=== PATIENT | female | born 1990 | race Caucasian/White ===

== ENCOUNTER 2018-06-25 20:39 | Emergency (ER) | payer OTHER ==
[~2018-06-25] VITALS: Ht 172.7 cm; Wt 85.6 kg
[2018-06-25 21:33] LABS: BASOPHILS % (AUTO) 0 % (0-1); EOSINOPHILS # (AUTO) 0.01 x10^3/uL (0-0.4); EOSINOPHILS % (AUTO) 0 % (1-7); LYMPHOCYTES # (AUTO) 0.88 x10^3/uL (1-3.4); LYMPHOCYTES % (AUTO) 8 % (22-44); MD NO; MEAN CORPUSCULAR HEMOGLOBIN 29.7 pg (27.0-34.8); MEAN CORPUSCULAR HGB CONC 33.1 g/dL (32.4-35.8); MEAN CORPUSCULAR VOLUME 89.7 fL (80-100); MEAN PLATELET VOLUME 6.8 fL (7.4-10.4); MONOCYTES # (AUTO) 0.56 x10^3/uL (0.2-0.8); MONOCYTES % (AUTO) 5 % (2-9); NEUTROPHILS # (AUTO) 9.26 x10^3/uL (1.8-6.8); NEUTROPHILS % (AUTO) 86 % (42-75); PLATELET COUNT 340 x10^3/uL (130-400); RED BLOOD COUNT 4.22 x10^6/uL (3.82-5.3); RED CELL DISTRIBUTION WIDTH 20.4 % (9.6-15.2)
[2018-06-25 21:42] LABS: ALANINE AMINOTRANSFERASE 51 U/L (12-78); ANION GAP 15 mmol/L (5-15); CHLORIDE 104 mmol/L (98-107)
[2018-06-25 21:43] LABS: D-DIMER 1.7 ug/mlFEU (0.00-0.52); INTERNATIONAL NORMALIZED RATIO 1.01 (0.93-1.1); PROTHROMBIN TIME 10.7 Seconds (9.6-11.5)
[2018-06-25 21:47] LABS: ALKALINE PHOSPHATASE 114 U/L (45-117); BILIRUBIN,TOTAL 0.4 mg/dL (0.2-1.0); CREATININE 0.85 mg/dL (0.55-1.02); FREE T4 (FREE THYROXINE) 0.73 ng/dL (0.76-1.46); TOTAL PROTEIN 7.7 g/dL (6.4-8.2); TROPONIN I < 0.015 ng/mL (0.000-0.045)
[2018-06-25] MEDS ORDERED: LORazepam 2 MG/ML, 1ML IVPush ONE (22:00)
[2018-06-25 22:01] LABS: HCG UR SG 1.003 (1.003-1.030)
[2018-06-25] MEDS ORDERED: LORazepam 2 MG/ML, 1ML ONE (22:10)
[2018-06-25 22:19] LABS: AMPHETAMINE SCREEN, URINE Negative (Negative); BARBITURATE SCREEN, URINE Negative (Negative); BENZODIAZEPINE SCREEN, URINE Negative (Negative); CANNABINOID SCREEN, URINE Negative (Negative); COCAINE SCREEN, URINE Negative (Negative); METHADONE SCREEN, URINE Negative (Negative)
[2018-06-25 22:20] LABS: OPIATE SCREEN, URINE Negative (Negative)
[2018-06-25] MEDS ORDERED: OMNIPAQUE 350 MG/ML, 100ML BOTTLE ONE (22:28)
[2018-06-25 23:10] VITALS: BP 122/74
== END 2018-06-25 23:42 | disposition home or self-care (01) ==
LOC: ED 21:23
DX: R07.89 Other chest pain (principal); R42 Dizziness and giddiness; R00.2 Palpitations; I10 Essential (primary) hypertension; Z90.49 Acquired absence of other specified parts of digestive tract; Z88.0 Allergy status to penicillin
CPT/HCPCS: 36415; 71045; 71275; 80053; 80307; 81025; 84439; 84443; 84484; 85025; 85379; 85610; 85730; 93005; 96374; 99284; J2060; Q9967

== ENCOUNTER 2018-07-27 02:03 | Emergency (ER) | payer OTHER ==
[~2018-07-27] VITALS: Ht 172.7 cm; Wt 85.6 kg
[~2018-07-27 02:03] MED LIST: GABA300C10 PO
[2018-07-27] MEDS ORDERED: FLUO40CA9 PO (02:08)
--- NOTE | 2018-07-27 02:09 | NUR ---
REGISTRATION SUPPLYING PAPERWORK AT THIS TIME, INJURY 07/15/18
--- NOTE | 2018-07-27 02:24 | NUR ---
MD PRESENTED WITH C/O PAIN AND SWELLING TO RIGHT HAND RADIATING TO ELBOW THAT STARTED ON 07/05/2018 AFTER INJURING HAND AT WORK, PT STATED TONIGHT PAIN GOT WORSE WHEN TRYING TO GET OUT OF BED. MONITOR APPLIED, SIDERAILS UP X2, CALL LIGHT WITHIN REACH, AWAITING ERP ORDERS.
[2018-07-27] MEDS ORDERED: HYDROcodone/APAP 5/325 TABLET ONE (02:46)
--- NOTE | 2018-07-27 02:48 | NUR ---
RIGHT WRIST ELEVATED, ICE PACK APPLIED, PT MEDICATED PER MAR
[2018-07-27] MEDS ORDERED: HYDROcodone/APAP 5/325 TABLET PO ONE (03:00)
[2018-07-27 03:23] VITALS: BP 120/75
--- NOTE | 2018-07-27 03:23 | NUR ---
PT RESTING WITH EYES CLOSED, OPENS EYES TO VERBAL RESPONSE, STATED " PAIN IS BETTER NOW", CALL LIGHT WITHIN REACH, CHART UP FOR RECHECK
--- NOTE | 2018-07-27 04:01 | NUR ---
SPLINT APPLIED TO RIGHT WRIST
== END 2018-07-27 04:03 | disposition home or self-care (01) ==
LOC: ED 03:16
DX: S60.211A Contusion of right wrist, initial encounter (principal); I10 Essential (primary) hypertension; Z90.49 Acquired absence of other specified parts of digestive tract; X58.XXXA Exposure to other specified factors, initial encounter; Y93.89 Activity, other specified; Y92.89 Other specified places as the place of occurrence of the external cause; Y99.8 Other external cause status
CPT/HCPCS: 29125; 29260; 99283

== ENCOUNTER 2018-08-16 17:23 | Emergency (ER) | payer OTHER ==
[~2018-08-16] VITALS: Ht 172.7 cm; Wt 82.9 kg
[~2018-08-16 17:23] MED LIST changes: +FLUO40CA9 PO
[2018-08-16 17:30] VITALS: BP 109/75
[2018-08-16] MEDS ORDERED: KETOROLAC 30 MG/1 ML IM ONE (18:30)
[2018-08-16] MEDS ORDERED: KETOROLAC 30 MG/1 ML ONE (18:53)
[2018-08-16] MEDS ORDERED: HYDROcodone/APAP 5/325 TABLET ONE (19:01)
[2018-08-16] MEDS ORDERED: DIAZEPAM 5 MG TABLET ONE (19:01)
[2018-08-16] MEDS ORDERED: HYDROcodone/APAP 5/325 TABLET PO STA (19:01)
[2018-08-16] MEDS ORDERED: DIAZEPAM 5 MG TABLET PO ONE (19:30)
--- NOTE | 2018-08-16 19:35 | NUR ---
Pt ambulated to door req blanket, blanket provided for pt.
== END 2018-08-16 20:29 | disposition home or self-care (01) ==
LOC: ED 19:08
DX: S39.012A Strain of muscle, fascia and tendon of lower back, initial encounter (principal); I10 Essential (primary) hypertension; X50.1XXA Overexertion from prolonged static or awkward postures, initial encounter; Y93.89 Activity, other specified; Y92.69 Other specified industrial and construction area as the place of occurrence of the external cause; Y99.0 Civilian activity done for income or pay
CPT/HCPCS: 72110; 96372; 99284; J1885; J7512

== ENCOUNTER 2018-08-19 10:07 | Emergency (ER) | payer OTHER ==
[~2018-08-19] VITALS: Ht 172.7 cm; Wt 83.5 kg
[2018-08-19 10:19] VITALS: BP 118/79
[2018-08-19] MEDS ORDERED: DIAZEPAM 5 MG TABLET ONE (10:59)
[2018-08-19] MEDS ORDERED: KETOROLAC 30 MG/1 ML ONE (10:59)
[2018-08-19] MEDS ORDERED: KETOROLAC 30 MG/1 ML IM ONE (11:00)
[2018-08-19] MEDS ORDERED: DIAZEPAM 5 MG TABLET PO ONE (11:00)
== END 2018-08-19 13:53 | disposition home or self-care (01) ==
LOC: ED 10:42
DX: S39.012A Strain of muscle, fascia and tendon of lower back, initial encounter (principal); X58.XXXA Exposure to other specified factors, initial encounter; Y93.89 Activity, other specified; Y92.89 Other specified places as the place of occurrence of the external cause; Y99.8 Other external cause status; I10 Essential (primary) hypertension
CPT/HCPCS: 72110; 96372; 99283; J1885

== ENCOUNTER 2018-09-24 | Emergency (ER) | payer OTHER ==
[~2018-09-24] VITALS: Ht 172.7 cm; Wt 83.5 kg
[2018-09-24 00:03] VITALS: BP 123/85
--- NOTE | 2018-09-24 01:33 | NUR ---
REGISTRATION REPORTS PT. WALKED OUT OF FRONT DOORS OF ED.
--- NOTE | 2018-09-24 01:34 | NUR ---
NIL X 1 AT THIS TIME.
--- NOTE | 2018-09-24 01:44 | NUR ---
NIL X 2.
--- NOTE | 2018-09-24 01:55 | NUR ---
NIL X 3 WHEN CALLED.
== END 2018-09-24 01:56 | disposition left against medical advice (07) ==
LOC: ED 01:40
DX: R19.7 Diarrhea, unspecified (principal); R11.10 Vomiting, unspecified; Z53.21 Procedure and treatment not carried out due to patient leaving prior to being seen by health care provider

== ENCOUNTER 2018-09-24 09:19 | Emergency (ER) | payer OTHER ==
[~2018-09-24] VITALS: Ht 172.7 cm; Wt 84.0 kg
--- NOTE | 2018-09-24 10:10 | NUR ---
MD AT BEDSIDE DOING RECTAL EXAM AND OBTAINING HEMOCULT
[2018-09-24] MEDS ORDERED: ONDANSETRON ODT 4 MG ONE (10:19)
--- NOTE | 2018-09-24 10:21 | NUR ---
UNABLE TO ESTABLISH IV. LAB AT BEDSIDE DRAWING BLOOD. MEDICATED FOR NAUSEA. VO BY MD TO ATTEMPT PO CHALLENGE AFTER MEDICATED
[2018-09-24] MEDS ORDERED: ONDANSETRON ODT 4 MG PO ONE (10:30)
[2018-09-24 10:33] LABS: BASOPHILS # (AUTO) 0.02 x10^3/uL (0-0.1); BASOPHILS % (AUTO) 0 % (0-1); EOSINOPHILS # (AUTO) 0.01 x10^3/uL (0-0.4); EOSINOPHILS % (AUTO) 0 % (1-7); LYMPHOCYTES # (AUTO) 1.52 x10^3/uL (1-3.4); LYMPHOCYTES % (AUTO) 22 % (22-44); MD NO; MEAN CORPUSCULAR HGB CONC 32.5 g/dL (32.4-35.8); MEAN CORPUSCULAR VOLUME 83.1 fL (80-100); MEAN PLATELET VOLUME 6.3 fL (7.4-10.4); MONOCYTES % (AUTO) 4 % (2-9); NEUTROPHILS # (AUTO) 5.09 x10^3/uL (1.8-6.8); NEUTROPHILS % (AUTO) 73 % (42-75); PLATELET COUNT 280 x10^3/uL (130-400); RED BLOOD COUNT 4.29 x10^6/uL (3.82-5.3); RED CELL DISTRIBUTION WIDTH 17.4 % (9.6-15.2)
[2018-09-24 10:43] LABS: INTERNATIONAL NORMALIZED RATIO 1.15 (0.93-1.1)
[2018-09-24 10:45] LABS: ALANINE AMINOTRANSFERASE 28 U/L (12-78); ANION GAP 11 mmol/L (5-15); CALCIUM 7.9 mg/dL (8.5-10.1); CHLORIDE 99 mmol/L (98-107)
--- NOTE | 2018-09-24 10:47 | NUR ---
UOB TO BATHROOM. PT DID NOT KNOW URINE SAMPLE NEEDED. PT SHOWED ME TISSUE WHERE SHE WIPED WITH BROWN NOTED. PT GIVEN PO CHALLENGE AND TO TRY TO GET URINE SAMPLE TALI
[2018-09-24 10:50] LABS: ALKALINE PHOSPHATASE 72 U/L (45-117); BILIRUBIN,TOTAL 0.5 mg/dL (0.2-1.0); TOTAL PROTEIN 6.9 g/dL (6.4-8.2)
[2018-09-24] MEDS ORDERED: POTASSIUM CHLORIDE 20 MEQ TAB.ER.PRT PO ONE (11:00)
[2018-09-24] MEDS ORDERED: POTASSIUM CHLORIDE 20 MEQ TAB.ER.PRT ONE (11:21)
[2018-09-24 11:46] LABS: MICROSCOPIC INDICATED
--- NOTE | 2018-09-24 11:52 | NUR ---
PT TOLERATING PO CHALLENGE BUT C/O ABDOMINAL PAIN
[2018-09-24 11:59] LABS: CULTURE INDICATED? YES
[2018-09-24 12:41] VITALS: BP 122/83
== END 2018-09-24 12:43 | disposition home or self-care (01) ==
LOC: ED 10:19
DX: E87.6 Hypokalemia (principal); R10.84 Generalized abdominal pain; R19.7 Diarrhea, unspecified; I10 Essential (primary) hypertension
CPT/HCPCS: 36415; 80053; 81001; 83690; 84703; 85025; 85610; 85730; 87086; 99283; Q0162

== ENCOUNTER 2019-02-28 01:35 | Emergency (ER) | payer OTHER ==
[~2019-02-28] VITALS: Ht 172.7 cm; Wt 79.8 kg
[2019-02-28 01:40] VITALS: BP 160/82
== END 2019-02-28 03:23 ==
LOC: ED 03:17
DX: O26.891 Other specified pregnancy related conditions, first trimester (principal); O99.281 Endocrine, nutritional and metabolic diseases complicating pregnancy, first trimester; E87.6 Hypokalemia; R10.30 Lower abdominal pain, unspecified; Z3A.01 Less than 8 weeks gestation of pregnancy
CPT/HCPCS: 36415; 76830; 80053; 81003; 84702; 85025; 99284; Q0162

== ENCOUNTER 2019-05-11 23:32 | Emergency (ER) | payer MEDICAID ==
[~2019-05-11] VITALS: Ht 172.7 cm; Wt 78.0 kg
[~2019-05-11 23:32] MED LIST changes: +PRENATAL; +multivitamins
--- NOTE | 2019-05-11 23:47 | NUR ---
PT BIB EMS WITH COMPLAINTS OF ABD PAIN, N/D THAT STARTED THIS EVENING. "THE PAIN SHOT FROM MY BELLY BUTTON TO MY BACK AND ALL THOROUGH MY ABDOMEN." PT DENIES VOMITING. PT REPORTS EATING SPICY FOOD EARLIER TODAY THAT "MADE ME HAVE A STOMACH ACHE AND HEARTBURN".
[2019-05-11] MEDS ORDERED: MORPHINE SULFATE 4 MG/ML, 1ML ONE (23:54)
[2019-05-11] MEDS ORDERED: ONDANSETRON 2MG/ML, 2ML ONE (23:54)
[2019-05-11 23:56] LABS: BASOPHILS # (AUTO) 0.02 x10^3/uL (0-0.1); BASOPHILS % (AUTO) 0 % (0-1); EOSINOPHILS % (AUTO) 10 % (1-7); LYMPHOCYTES # (AUTO) 2.61 x10^3/uL (1-3.4); LYMPHOCYTES % (AUTO) 28 % (22-44); MD NO; MEAN CORPUSCULAR HEMOGLOBIN 29.7 pg (27.0-34.8); MEAN CORPUSCULAR HGB CONC 32.9 g/dL (32.4-35.8); MEAN CORPUSCULAR VOLUME 90.3 fL (80-100); MEAN PLATELET VOLUME 6.9 fL (7.4-10.4); MONOCYTES # (AUTO) 0.57 x10^3/uL (0.2-0.8); MONOCYTES % (AUTO) 6 % (2-9); NEUTROPHILS # (AUTO) 5.27 x10^3/uL (1.8-6.8); NEUTROPHILS % (AUTO) 56 % (42-75); PLATELET COUNT 341 x10^3/uL (130-400); RED BLOOD COUNT 4.04 x10^6/uL (3.82-5.3); RED CELL DISTRIBUTION WIDTH 15.8 % (9.6-15.2)
[2019-05-12] MEDS ORDERED: ONDANSETRON 2MG/ML, 2ML IVPush ONE
[2019-05-12] MEDS: MORPHINE SULFATE 4 MG/ML, 1ML IVPush PRN ×2 (00:01→00:45)
[2019-05-12 00:04] LABS: ALANINE AMINOTRANSFERASE 30 U/L (12-78); ALBUMIN 3.1 g/dL (3.4-5.0); ANION GAP 6 mmol/L (5-15); CALCIUM 8.8 mg/dL (8.5-10.1); CHLORIDE 109 mmol/L (98-107); CREATININE 0.59 mg/dL (0.55-1.02)
[2019-05-12 00:08] LABS: ALKALINE PHOSPHATASE 56 U/L (45-117); BILIRUBIN,TOTAL 0.2 mg/dL (0.2-1.0); TOTAL PROTEIN 7.1 g/dL (6.4-8.2)
--- NOTE | 2019-05-12 00:13 | NUR ---
PT PROVIDED URINE SAMPLE. PT MEDICATED PER SEP.
[2019-05-12] MEDS ORDERED: MORPHINE SULFATE 4 MG/ML, 1ML ONE ×2 (00:40→01:52)
[2019-05-12 00:48] LABS: MICROSCOPIC NOT IND
[2019-05-12 00:51] LABS: CULTURE INDICATED? NO
--- NOTE | 2019-05-12 01:45 | NUR ---
DR. MCFADDEN IN TO [facility] PT.
[2019-05-12] MEDS ORDERED: KETOROLAC 30 MG/1 ML ONE (01:52)
[2019-05-12] MEDS ORDERED: KETOROLAC 30 MG/1 ML IVPush ONE (02:00)
[2019-05-12] MEDS ORDERED: MORPHINE SULFATE 4 MG/ML, 1ML IV ONE (02:00)
[2019-05-12 02:39] VITALS: BP 101/59
[2019-05-12] MEDS ORDERED: GABA800T5 PO (02:43)
== END 2019-05-12 02:44 | disposition home or self-care (01) ==
LOC: ED 05-12 00:09
DX: R10.84 Generalized abdominal pain (principal); R11.2 Nausea with vomiting, unspecified; R19.7 Diarrhea, unspecified; F17.200 Nicotine dependence, unspecified, uncomplicated; Z90.89 Acquired absence of other organs; Z90.49 Acquired absence of other specified parts of digestive tract
CPT/HCPCS: 36415; 80053; 81003; 83690; 84703; 85025; 96374; 96375; 96376; 99283; J1885; J2270; J2405

== ENCOUNTER 2019-05-19 23:46 | Emergency (ER) | payer MEDICAID ==
[~2019-05-19] VITALS: Ht 172.7 cm; Wt 79.1 kg
[~2019-05-19 23:46] MED LIST changes: +GABA800T5 PO
[2019-05-20] MEDS ORDERED: PROMETHAZINE 25 MG/ML, 1ML ONE (00:18)
[2019-05-20] MEDS ORDERED: KETOROLAC 30 MG/1 ML ONE (00:18)
[2019-05-20] MEDS ORDERED: ONDANSETRON 2MG/ML, 2ML ONE (00:18)
[2019-05-20] MEDS ORDERED: PROMETHAZINE 25 MG/ML, 1ML IM ONE (00:30)
[2019-05-20] MEDS ORDERED: SODIUM CHLORIDE FLUSH 10ML SYR IVF ONE (00:30)
[2019-05-20] MEDS ORDERED: ONDANSETRON 2MG/ML, 2ML IVPush ONE (00:30)
[2019-05-20] MEDS ORDERED: KETOROLAC 30 MG/1 ML IVPush ONE (00:30)
[2019-05-20 00:34] LABS: ALANINE AMINOTRANSFERASE 33 U/L (12-78); ALBUMIN 3.1 g/dL (3.4-5.0); ANION GAP 7 mmol/L (5-15); BASOPHILS # (AUTO) 0.05 x10^3/uL (0-0.1); BASOPHILS % (AUTO) 1 % (0-1); CALCIUM 8.6 mg/dL (8.5-10.1); CHLORIDE 107 mmol/L (98-107); CREATININE 0.86 mg/dL (0.55-1.02); EOSINOPHILS # (AUTO) 0.96 x10^3/uL (0-0.4); EOSINOPHILS % (AUTO) 10 % (1-7); LYMPHOCYTES # (AUTO) 2.87 x10^3/uL (1-3.4); LYMPHOCYTES % (AUTO) 29 % (22-44); MD NO; MEAN CORPUSCULAR HEMOGLOBIN 29.4 pg (27.0-34.8); MEAN CORPUSCULAR HGB CONC 32.5 g/dL (32.4-35.8); MEAN CORPUSCULAR VOLUME 90.6 fL (80-100); MEAN PLATELET VOLUME 7.3 fL (7.4-10.4); MONOCYTES # (AUTO) 0.68 x10^3/uL (0.2-0.8); MONOCYTES % (AUTO) 7 % (2-9); NEUTROPHILS # (AUTO) 5.19 x10^3/uL (1.8-6.8); NEUTROPHILS % (AUTO) 53 % (42-75); PLATELET COUNT 385 x10^3/uL (130-400); RED BLOOD COUNT 4.23 x10^6/uL (3.82-5.3); RED CELL DISTRIBUTION WIDTH 15.1 % (9.6-15.2)
[2019-05-20 00:38] LABS: ALKALINE PHOSPHATASE 64 U/L (45-117); BILIRUBIN,TOTAL 0.2 mg/dL (0.2-1.0)
--- NOTE | 2019-05-20 00:44 | NUR ---
PT C/O LOWER ABDOMINAL PAIN RADIATING TO FLANK. DENIES CP, SOB. PT REPORTS N/V/D. PT IN ED APPX 1 WEEK AGO WITH SIMGRZAYNA C/C REPORTS NO RELEIF SINCE THEN. PT CONNECTED TO MONITORING, ALL SAFETY MEASEURES IN PLACE, CALL LIGHT WITHIN REACH.
--- NOTE | 2019-05-20 00:53 | NUR ---
PT TO IMAGING
--- NOTE | 2019-05-20 01:11 | NUR ---
PT UNWILLING TO PROVIDE URINE SAMPLE AT THIS TIME.
--- NOTE | 2019-05-20 01:28 | NUR ---
PT REPORTS CONTINUED PAIN 02/22. ERP NOTIFIED. NO NEW ORDERS, PT UPDATED. AWAITING IMAGING RESULTS. PT UNWILLING TO PROVIDE URINE SAMPLE.
--- NOTE | 2019-05-20 01:51 | NUR ---
DR. AQUINO IN ROOM TO DISCUSS NEED FOR URINE SAMPLE. PT CONTINUES TO REFUSE.
--- NOTE | 2019-05-20 02:30 | NUR ---
PT. GIVEN INSTRUCITONS ABOUT CLEAN CATCH UA; PT. WILLING TO ATTEMPT TO PROVIDE SAMPLE NOW. AMBULATED TO WITH STEADY GAIT.
--- NOTE | 2019-05-20 02:38 | NUR ---
URINE SAMPLE COLLECTED AND SENT TO LAB. PT. STATES "NURSE, I AM GETTING REALLY SICK OF LAYING HERE IN PAIN, AND YOU AREN'T DOING ANYTHING FOR ME." DISCUSSED WTIH DR. AQUINO; NO NEW ORDERS AT THIS TIME; PT. UPDATED ON THIS. MONITORS REMAIN IN PLACE. VSS.
[2019-05-20 02:48] LABS: MICROSCOPIC INDICATED
--- NOTE | 2019-05-20 02:53 | NUR ---
PT. AGAIN CALLING RN INTO ROOM REQUESTING PAIN MEDICATIONS. DISCUSSED AGAIN WITH PT. THAT NO NEW ORDERS HAVE BEEN RECEIVED DESPITE REQ FROM ERMD X 2. PT. AGITATED WITH RN AND STATES "HOW MUCH LONGER DO I HAVE TO BE HERE". REPORTED TO HER WE ARE WAITING FOR UA RESULTS AND MD WILL BE BACK TO DISCUSS RESULTS. PT. REPORTS SHE WILL WAIT FOR NOW. FAMILY REMAINS AT FOR SUPPORT. ALL SAFETY MEASURES MAINTAINED.
[2019-05-20 03:11] LABS: CULTURE INDICATED? YES
--- NOTE | 2019-05-20 03:29 | NUR ---
DR. AQUINO WAS BACK IN TO DISCUSS POC WITH PT. AND FAMILY AT .
[2019-05-20 03:47] VITALS: BP 94/56
== END 2019-05-20 04:05 | disposition home or self-care (01) ==
LOC: ED 05-20 03:20
DX: R10.13 Epigastric pain (principal); R10.11 Right upper quadrant pain; R82.71 Bacteriuria; R11.2 Nausea with vomiting, unspecified; R19.7 Diarrhea, unspecified; F17.200 Nicotine dependence, unspecified, uncomplicated; Z90.49 Acquired absence of other specified parts of digestive tract
CPT/HCPCS: 36415; 74021; 80053; 81001; 83690; 84702; 85025; 87086; 96372; 96374; 96375; 99284; J1885; J2405; J2550; 84703

== ENCOUNTER 2019-06-05 00:35 | Emergency (ER) | payer MEDICAID ==
[~2019-06-05] VITALS: Ht 172.7 cm; Wt 79.0 kg
--- NOTE | 2019-06-05 00:46 | NUR ---
PT JENN FROM GYM. PT STATES SHE HAS BEEN FEELING VERY WEAK & TIRED LAST COUPLE DAYS & THOUGHT GOING TO THE GYM TO "SWEAT IT OUT" WOULD HELP. PT THEN DEVELOPED RLQ PAIN, RADIATING TO BACK C N/V. PT GIVEN 150MCG FENTANYL & 4MG ZOFRAN ENROUTE. MILD RELIEF. PT CONTINUES TO HAVE VOMITING. VSS. TBS.
[2019-06-05] MEDS ORDERED: ONDANSETRON 2MG/ML, 2ML IVPush ONE (01:00)
[2019-06-05] MEDS ORDERED: SODIUM CHLORIDE 0.9% 1,000ML IVBOLUS ONE (01:00)
--- NOTE | 2019-06-05 01:00 | NUR ---
RECEIVED REPORT FROM MARCELINO PADRON. US CURRENTLY AT BEDSIDE.
[2019-06-05] MEDS ORDERED: MORPHINE SULFATE 4 MG/ML, 1ML ONE ×2 (01:08→02:37)
[2019-06-05] MEDS ORDERED: ONDANSETRON 2MG/ML, 2ML ONE (01:08)
[2019-06-05] MEDS: MORPHINE SULFATE 4 MG/ML, 1ML IVPush PRN ×2 (01:11→02:39)
--- NOTE | 2019-06-05 01:33 | NUR ---
0110: MEDICATED ORDERED 0128: PT AMBULATED TO BR, CLEAN CATCH URINE SAMPLES COLLECTED AND SENT TO LAB. PT BACK TO ROOM, REPOSITIONED ON [facility].
[2019-06-05 01:36] LABS: ALANINE AMINOTRANSFERASE 29 U/L (12-78); ALBUMIN 3.2 g/dL (3.4-5.0); ANION GAP 7 mmol/L (5-15); CALCIUM 8.9 mg/dL (8.5-10.1); CHLORIDE 108 mmol/L (98-107); CREATININE 0.69 mg/dL (0.55-1.02)
[2019-06-05 01:39] LABS: ALKALINE PHOSPHATASE 53 U/L (45-117); BILIRUBIN,TOTAL 0.2 mg/dL (0.2-1.0); TOTAL PROTEIN 7.4 g/dL (6.4-8.2)
[2019-06-05 01:42] LABS: BASOPHILS # (AUTO) 0.03 x10^3/uL (0-0.1); BASOPHILS % (AUTO) 0 % (0-1); EOSINOPHILS # (AUTO) 0.51 x10^3/uL (0-0.4); EOSINOPHILS % (AUTO) 6 % (1-7); LYMPHOCYTES % (AUTO) 30 % (22-44); MD NO; MEAN CORPUSCULAR HEMOGLOBIN 29.9 pg (27.0-34.8); MEAN CORPUSCULAR HGB CONC 33.2 g/dL (32.4-35.8); MEAN CORPUSCULAR VOLUME 90.3 fL (80-100); MEAN PLATELET VOLUME 7.2 fL (7.4-10.4); MONOCYTES # (AUTO) 0.58 x10^3/uL (0.2-0.8); MONOCYTES % (AUTO) 7 % (2-9); NEUTROPHILS # (AUTO) 4.87 x10^3/uL (1.8-6.8); NEUTROPHILS % (AUTO) 57 % (42-75); PLATELET COUNT 340 x10^3/uL (130-400); RED BLOOD COUNT 4.47 x10^6/uL (3.82-5.3); RED CELL DISTRIBUTION WIDTH 14.6 % (9.6-15.2)
--- NOTE | 2019-06-05 01:43 | NUR ---
PT REPORTS NAUSEA AND PAIN ARE IMPROVING. REPOSITIONED ON GURNEY, PROVIDED W/ WARM BLANKET
[2019-06-05 01:52] LABS: MICROSCOPIC AUTO
[2019-06-05 01:58] LABS: CULTURE INDICATED? YES
[2019-06-05 02:14] VITALS: BP 107/69
[2019-06-05] MEDS ORDERED: METOCLOPRAMIDE 5 MG/ML, 2ML ONE (02:29)
[2019-06-05] MEDS ORDERED: METOCLOPRAMIDE 5 MG/ML, 2ML IVPush ONE (02:30)
--- NOTE | 2019-06-05 02:57 | NUR ---
REVIEWED DISCHARGE INSTRUCTIONS W/ PT, VERBALIZED UNDERSTANDING TO INFORMATION PROVIDED INCLUDING FOLLOW UP CARE, RETURN PRECAUTIONS AND MEDICATIONS. PT REPORTS HAS AN APPOINTMENT SCHEDULED W/ GI. SPOUSE ARRIVED TO ED, REVIEWED DISCHARGE INSTRUCTIONS AND PRECAUTIONS W/ MEDICATIONS GIVEN. PT STATED FEELING WELL ENOUGH TO GO HOME, AMBULATED FROM ED W/ SPOUSE.
== END 2019-06-05 03:01 | disposition home or self-care (01) ==
LOC: ED 02:45
DX: R11.2 Nausea with vomiting, unspecified (principal); R10.31 Right lower quadrant pain; R10.32 Left lower quadrant pain; R19.7 Diarrhea, unspecified; Z90.89 Acquired absence of other organs; Z90.49 Acquired absence of other specified parts of digestive tract; Z87.11 Personal history of peptic ulcer disease
CPT/HCPCS: 36415; 76770; 80053; 81001; 81025; 83690; 85025; 87086; 96361; 96374; 96375; 96376; 99284; J2270; J2405; J2765; J7030

== ENCOUNTER 2019-06-07 11:01 | Emergency (ER) | payer MEDICAID, OTHER ==
[~2019-06-07] VITALS: Ht 172.7 cm; Wt 77.5 kg
[2019-06-07 11:11] VITALS: BP 125/79
--- NOTE | 2019-06-07 11:16 | NUR ---
PT C/O ABD PAIN SINCE YESTERDAY, SEEN HERE YESTERDAY AND DC'D HOME. PT DID NOT FILL RX AND AT ABOUT 3 AM BEGAN TO VOMIT AGAIN. PT DENIES ANY VB OR DIARRHEA. DR. KENNEDY AT BEDSIDE.
[2019-06-07] MEDS ORDERED: METOCLOPRAMIDE 5 MG/ML, 2ML ONE (11:20)
--- NOTE | 2019-06-07 11:25 | NUR ---
PT REQUESTING PAIN MEDS. DR. KENNEDY NOTIFIED.
[2019-06-07] MEDS ORDERED: METOCLOPRAMIDE 5 MG/ML, 2ML IVPush ONE (11:30)
[2019-06-07] MEDS ORDERED: SODIUM CHLORIDE 0.9% 1,000ML IVBOLUS ONE (11:30)
--- NOTE | 2019-06-07 11:36 | NUR ---
PT STATED, 'I WANT TO GO." PT NOTIFIED DR. KENNEDY HAS ORDRED SAME LABS AND MEDICATIONS TO HELP CONTROL HER N/V AND PAIN MEDS WERE REQUESTED. PT INSISTED THAT SHE WANTED TO GO NOW. IV REMOVED AND DR. KENNEDY NOTIFIED. PT GIVEN BUS PASS.
== END 2019-06-07 11:40 | disposition home or self-care (01) ==
LOC: ED 11:34
DX: R10.31 Right lower quadrant pain (principal); R10.33 Periumbilical pain; R11.10 Vomiting, unspecified; Z87.11 Personal history of peptic ulcer disease
CPT/HCPCS: 99283

== ENCOUNTER 2019-06-13 18:53 | Emergency (ER) | payer MEDICAID, OTHER ==
[~2019-06-13] VITALS: Ht 172.7 cm; Wt 78.0 kg
[2019-06-13] MEDS ORDERED: ONDANSETRON 2MG/ML, 2ML ONE ×2 (19:23→22:32)
[2019-06-13] MEDS ORDERED: MORPHINE SULFATE 4 MG/ML, 1ML ONE ×2 (19:23→19:51)
[2019-06-13] MEDS ORDERED: IBUPROFEN 800 MG TABLET ONE (19:23)
[2019-06-13] MEDS ORDERED: ONDANSETRON 2MG/ML, 2ML IVPush ONE ×2 (19:30→23:00)
[2019-06-13] MEDS ORDERED: SODIUM CHLORIDE 0.9% 1,000ML IVBOLUS ONE (19:30)
[2019-06-13] MEDS ORDERED: PLEASE ENTER HEIGHT AND WEIGHT MC SCH (19:30)
[2019-06-13] MEDS ORDERED: SODIUM CHLORIDE FLUSH 10ML SYR IVF ONE (19:30)
[2019-06-13] MEDS ORDERED: IBUPROFEN 800 MG TABLET PO ONE (19:30)
[2019-06-13] MEDS: MORPHINE SULFATE 4 MG/ML, 1ML IVPush PRN ×2 (19:31→20:02)
--- NOTE | 2019-06-13 19:43 | NUR ---
PT PLACED ON HEART MONITOR, BP CUFF, PULSE OX. VSS, HR DECREASED TO 87 AT THIS TIME-PREVIOUSLY IN 120S. PT STATES "I WAS HAVING THE START OF A PANIC ATTACK THEN". MEDS AND IVF GIVEN PER ERP ORDER. WITHIN FIVE MINUTES OF MEDS GIVEN, PT ASKING FOR MORE PAIN MEDS-STATING IT HASN'T HELPED. SMALL AMOUNT OF PALE URINE COLLECTED/SENT TO LAB. ERP NOTIFIED OF CHANGE IN HR AND PT REQUEST FOR MORE PAIN MEDICATION.
[2019-06-13 19:52] LABS: CULTURE INDICATED? NO; MICROSCOPIC NOT IND
[2019-06-13 19:55] LABS: BASOPHILS # (AUTO) 0.02 x10^3/uL (0-0.1); BASOPHILS % (AUTO) 0 % (0-1); EOSINOPHILS # (AUTO) 0.02 x10^3/uL (0-0.4); EOSINOPHILS % (AUTO) 0 % (1-7); LYMPHOCYTES # (AUTO) 1.01 x10^3/uL (1-3.4); LYMPHOCYTES % (AUTO) 17 % (22-44); MD NO; MEAN CORPUSCULAR HGB CONC 32.8 g/dL (32.4-35.8); MEAN CORPUSCULAR VOLUME 91.6 fL (80-100); MEAN PLATELET VOLUME 6.7 fL (7.4-10.4); MONOCYTES # (AUTO) 0.31 x10^3/uL (0.2-0.8); MONOCYTES % (AUTO) 5 % (2-9); NEUTROPHILS # (AUTO) 4.47 x10^3/uL (1.8-6.8); NEUTROPHILS % (AUTO) 77 % (42-75); PLATELET COUNT 346 x10^3/uL (130-400); RED BLOOD COUNT 3.98 x10^6/uL (3.82-5.3); RED CELL DISTRIBUTION WIDTH 14.3 % (9.6-15.2)
--- NOTE | 2019-06-13 20:04 | NUR ---
PT REMEDICATED FOR PERSISTENT PAIN RATED 6/10 AT THIS TIME. CALL LIGHT WITHIN REACH, VSS.
[2019-06-13 20:09] LABS: ALANINE AMINOTRANSFERASE 28 U/L (12-78); ANION GAP 6 mmol/L (5-15); CALCIUM 8.2 mg/dL (8.5-10.1); CHLORIDE 107 mmol/L (98-107)
[2019-06-13 20:14] LABS: ALKALINE PHOSPHATASE 50 U/L (45-117); BILIRUBIN,TOTAL 0.3 mg/dL (0.2-1.0); TOTAL PROTEIN 6.9 g/dL (6.4-8.2)
--- NOTE | 2019-06-13 20:29 | NUR ---
ALL RESULTS BACK, PT FOR RECHECK.
[2019-06-13] MEDS ORDERED: POTASSIUM CHLORIDE 20 MEQ TAB.ER.PRT PO ONE (21:00)
[2019-06-13] MEDS ORDERED: POTASSIUM CHLORIDE 20 MEQ TAB.ER.PRT ONE (21:12)
--- NOTE | 2019-06-13 21:51 | NUR ---
REPORT FROM RUFINA BENSON
--- NOTE | 2019-06-13 22:17 | NUR ---
PT PLACED FOR RECHECK BY ERP
--- NOTE | 2019-06-13 22:23 | NUR ---
PT ASKING FOR PAIN MEDS, STATES SHE HAS BEEN ASKING FOR HOURS AND NO ONE HAS SAID ANYTHING TO HER. I TALKED TO DUNG AND DUNG SAID SHE HAD A DISCUSSION WITH PT ABOUT PAIN MEDICATIONS. DUNG SAID NO MORE PAIN MEDICATIONS UNTIL A POC IS CREATED AND PT WILL BE UPDATED SOON A PLAN IS MADE. PT CONTINUES TO GO INTO [facility] AND TO THE NURSES DESK TO ASK FOR PAIN MEDCATIONS AND CONTINUES TO STATES THAT NO NURSE HAS TALKED TO AFTER I UPDATED HER ON A POC LESS THEN 5 MINUTES AFTER I LEFT THE ROOM.
[2019-06-13] MEDS ORDERED: HYDROmorphone 1 MG/ML, 1ML VIAL ONE (22:32)
--- NOTE | 2019-06-13 22:38 | NUR ---
DUNG PERSCRIBED PAIN MEDICATION AND ZOFRAN. PT MEDICATED PER EMAR
--- NOTE | 2019-06-13 22:44 | NUR ---
DR AQUINO IN TO UPDATE PT. OB LINK TRAINER MAINTENANCE MAN COMING TO SEE PT.
[2019-06-13] MEDS ORDERED: HYDROmorphone 2 MG/ML, 1ML IVPush PRN (23:00)
--- NOTE | 2019-06-13 23:00 | NUR ---
OB IN TO ASSESS PT
[2019-06-13] MEDS ORDERED: PROMETHAZINE 25 MG/ML, 1ML ONE (23:55)
[2019-06-14] MEDS ORDERED: PROMETHAZINE 25 MG/ML, 1ML IM ONE
--- NOTE | 2019-06-14 00:06 | NUR ---
PT REPORTS RELIEF FROM PAIN, HOWEVER PT STATES THAT NAUSEA PERSISTS. PT PROVIDED PHENERGAN FOR NAUSEA. PT EDUCATED ON FOLLOW UP PROCEDURES.
[2019-06-14 00:16] VITALS: BP 115/63
== END 2019-06-14 00:09 | disposition home or self-care (01) ==
LOC: ED 20:15
DX: O26.891 Other specified pregnancy related conditions, first trimester (principal); R10.11 Right upper quadrant pain; R10.31 Right lower quadrant pain; Z3A.01 Less than 8 weeks gestation of pregnancy
CPT/HCPCS: 36415; 76830; 80053; 81003; 83605; 84145; 84702; 84703; 85025; 87040; 96372; 96374; 96375; 96376; 99284; J1170; J2270; J2405; J2550; J7030

== ENCOUNTER 2019-06-14 07:09 | Emergency (ER) | payer MEDICAID, OTHER ==
[~2019-06-14] VITALS: Ht 172.7 cm; Wt 80.1 kg
--- NOTE | 2019-06-14 07:19 | NUR ---
Pt pushed in wheelchair from triage to ED room. Pt has spouse walking beside.
--- NOTE | 2019-06-14 07:31 | NUR ---
Pt resting on gurney guarding RLQ of abdomen stating 10/10 pain. Pt states PMH of cholecystectomy and pt's chart shows appendectomy. Pt states, "I don't know" when asked if she had her appendix removed. Pt vital signs stable, please see charting. Pt states, "I have been vomitting blood for the last two hours." Pt states, "I am suppose to have a camera down my throat." Pt has recent history of abdominal pain. Pt connected to NIBP cuff and continous pulse ox monitor. Call light within reach. No vomitting observerd at bedside. NADN. No other needs expressed at this time.
--- NOTE | 2019-06-14 07:35 | NUR ---
Pt states LMP is currently occuring.
[2019-06-14] MEDS ORDERED: ONDANSETRON 2MG/ML, 2ML ONE (07:57)
[2019-06-14] MEDS ORDERED: MORPHINE SULFATE 4 MG/ML, 1ML ONE ×3 (07:57→10:21)
[2019-06-14] MEDS ORDERED: SODIUM CHLORIDE 0.9% 1,000ML IVBOLUS ONE (08:00)
[2019-06-14] MEDS ORDERED: ONDANSETRON 2MG/ML, 2ML IVPush ONE (08:00)
[2019-06-14] MEDS ORDERED: SODIUM CHLORIDE FLUSH 10ML SYR IVF ONE (08:00)
[2019-06-14] MEDS: MORPHINE SULFATE 4 MG/ML, 1ML IVPush PRN ×2 (08:10→09:06)
--- NOTE | 2019-06-14 08:18 | NUR ---
LABS - US DELAY
--- NOTE | 2019-06-14 08:30 | NUR ---
LAB to redraw in 30 minutes per specialist employee labor relations. Pt transported on gurney to US at this time. Prior to pt transported, pt states, "I am feeling better after the medication, the pain is still there but not as bad." NADN. No other needs expressed. Pt aware of NPO status.
[2019-06-14 08:35] LABS: MICROSCOPIC NOT IND
[2019-06-14 08:38] LABS: CULTURE INDICATED? NO
--- NOTE | 2019-06-14 09:07 | NUR ---
NS bolus per EMAR held per EDMD order.
--- NOTE | 2019-06-14 09:07 | NUR ---
Pt requesting pain medication for 02/22 RLQ abdominal pain. Pt states, "it started creeping back up again." Medication provided per EMAR.
[2019-06-14 09:34] LABS: ALANINE AMINOTRANSFERASE 200 U/L (12-78); ANION GAP 9 mmol/L (5-15); CALCIUM 8.9 mg/dL (8.5-10.1); CHLORIDE 108 mmol/L (98-107)
[2019-06-14 09:39] LABS: ALKALINE PHOSPHATASE 131 U/L (45-117); BILIRUBIN,TOTAL 0.4 mg/dL (0.2-1.0); TOTAL PROTEIN 7.1 g/dL (6.4-8.2)
[2019-06-14 09:57] LABS: MD YES; MEAN CORPUSCULAR HEMOGLOBIN 29.6 pg (27.0-34.8); MEAN CORPUSCULAR HGB CONC 33.1 g/dL (32.4-35.8); MEAN CORPUSCULAR VOLUME 89.6 fL (80-100); MEAN PLATELET VOLUME 6.8 fL (7.4-10.4); PLATELET COUNT 313 x10^3/uL (130-400); RED CELL DISTRIBUTION WIDTH 14.3 % (9.6-15.2)
[2019-06-14 09:58] LABS: SEG#(MANUAL) 4.44 x10^3/uL (1.8-6.8); SEGS% (MANUAL) 74 % (42-75)
[2019-06-14 09:59] LABS: EOS#(MANUAL) 0.06 x10^3/uL (0.0-0.4); EOS% (MANUAL) 1 % (1-7); LYMPH#(MANUAL) 1.38 x10^3/uL (1-3.4); LYMPHS% (MANUAL) 23 % (22-44); MONOS#(MANUAL) 0.12 x10^3/uL (0.3-2.7); MONOS% (MANUAL) 2 % (2-9)
[2019-06-14 10:00] LABS: <PLATELET ESTIMATE> ADEQUATE; <PLT MORPHOLOGY> NORMAL PLT MORPH; <RBC MORPHOLOGY> NORMAL
[2019-06-14 10:06] VITALS: BP 119/77
--- NOTE | 2019-06-14 10:06 | NUR ---
break RN note: abd US in progress in pt's room at this time. pt awake, alert, resps even and unlabored.
[2019-06-14] MEDS ORDERED: MORPHINE SULFATE 4 MG/ML, 1ML IVPush PRN (10:30)
[2019-06-14] MEDS ORDERED: NS + 40MEQ KCL 1,000 ML IV ONE ×2 (10:47→11:00)
--- NOTE | 2019-06-14 11:10 | NUR ---
Began to provide medicaitons and PIV fluids per EMAR. Pt states anxiety. Pt states, "I am getting anxious, I can not get a hold of my and I am worried something happened to him. He left like an hour ago to get tobacco. He is not back yet." EDRN attempted contacting pt's spouse per pt request by phone. No answer. Pt notified. Pt decied to leave AMA. Pt educated on AMA status. Pt states verbal understanding. AMA paperwork provided to pt. PIV's removed with tips intact and no signs or symptoms of infiltration or phlebitis. Pt left with all personal belongings and yellow copy of AMA paperwork. NADN. No other needs requested.
== END 2019-06-14 11:14 | disposition left against medical advice (07) ==
LOC: ED 07:30
DX: R10.2 Pelvic and perineal pain (principal); R94.5 Abnormal results of liver function studies; R11.10 Vomiting, unspecified
CPT/HCPCS: 36415; 76700; 76801; 80053; 80074; 81003; 83690; 84702; 85025; 96365; 96375; 96376; 99284; J2270; J2405; J3480; J7030

== ENCOUNTER 2019-06-14 16:37 | Emergency (ER) | payer OTHER, MEDICAID ==
[~2019-06-14] VITALS: Ht 172.7 cm; Wt 77.5 kg
[2019-06-14 16:40] VITALS: BP 131/97
--- NOTE | 2019-06-14 17:21 | NUR ---
pt found walking in hallway. verbalizes desire to leave at this time. refuses discussion with MD prior to dc. pt escorted back to room and iv dc'd. pt expresses concern about calling if being admitted. discussed poc and escorted pt to telephone at dc desk. pt still refuses to stay.
== END 2019-06-14 17:26 | disposition left against medical advice (07) ==
LOC: ED 17:10
DX: O26.891 Other specified pregnancy related conditions, first trimester (principal); O21.9 Vomiting of pregnancy, unspecified; B17.9 Acute viral hepatitis, unspecified; Z90.49 Acquired absence of other specified parts of digestive tract; Z3A.01 Less than 8 weeks gestation of pregnancy
CPT/HCPCS: 99283

== ENCOUNTER 2019-06-15 07:29 | Emergency (ER) | payer MEDICAID, OTHER ==
[~2019-06-15] VITALS: Ht 172.7 cm; Wt 75.1 kg
--- NOTE | 2019-06-15 07:50 | NUR ---
BIB EMS, C/O RUQ ABD WITH N/V FOR 4 DAYS. WAS SEEN IN ED 2 DAYS AGO AND LEFT AMA. PIV WAS STARTED DAMAGE ASSESSOR AND IVF INITIATED PT REC'D MORPHINE, ZOFRAN AND FENTNYL FOR PAIN DAMAGE ASSESSOR BUT CONTINUES TO HAVE PAIN AND EMESIS. EMESIS IS COFFEE GROUND IN APPEARANCE. PT ABLE TO AMBULATE TO BATHROOM WITH STOOPING GAIT AND URINE SAMPLE COLLECTED. PT RTD TO ROOM W/O INCIDENT BP AND PULSE OX MONITORING IN PLACE. RAI STANTON PA AT BEDSIDE. PT ASSESSMENT REVIEWED. EMESIS NEG FOR GASTRO OCCULT BLD. IVF INFUSING W/O DIFFICULTY. PER PT REQUEST I CALLED HER AND LEFT A MESSAGE ON HIS CELL PHONE. CALL LIGHT W/I REACH.
--- NOTE | 2019-06-15 07:57 | NUR ---
POC AND ORDERS REVIEWED WITH ER PA. PER DR. SAWYER NO ADDITIONAL PAIN MEDICATION AT THIS TIME.
[2019-06-15] MEDS ORDERED: ONDANSETRON 2MG/ML, 2ML IVPush ONE (08:00)
[2019-06-15] MEDS ORDERED: SODIUM CHLORIDE FLUSH 10ML SYR IVF ONE (08:00)
[2019-06-15] MEDS ORDERED: ONDANSETRON 2MG/ML, 2ML ONE (08:08)
--- NOTE | 2019-06-15 08:10 | NUR ---
PT RED VILLALOBOS VERBALIZES, "I'M NOT NASEAUOS I'M ONLY SICK BECAUSE OF THE PAIN" "I WANT TO TALK TO THE DOCTOR"
[2019-06-15 08:15] LABS: BASOPHILS # (AUTO) 0.01 x10^3/uL (0-0.1); BASOPHILS % (AUTO) 0 % (0-1); EOSINOPHILS # (AUTO) 0.11 x10^3/uL (0-0.4); EOSINOPHILS % (AUTO) 1 % (1-7); LYMPHOCYTES % (AUTO) 25 % (22-44); MD NO; MEAN CORPUSCULAR HEMOGLOBIN 29.4 pg (27.0-34.8); MEAN CORPUSCULAR HGB CONC 32.5 g/dL (32.4-35.8); MEAN CORPUSCULAR VOLUME 90.5 fL (80-100); MEAN PLATELET VOLUME 6.3 fL (7.4-10.4); MONOCYTES # (AUTO) 0.51 x10^3/uL (0.2-0.8); MONOCYTES % (AUTO) 7 % (2-9); NEUTROPHILS # (AUTO) 5.09 x10^3/uL (1.8-6.8); NEUTROPHILS % (AUTO) 67 % (42-75); PLATELET COUNT 329 x10^3/uL (130-400); RED BLOOD COUNT 3.86 x10^6/uL (3.82-5.3); RED CELL DISTRIBUTION WIDTH 14.6 % (9.6-15.2)
--- NOTE | 2019-06-15 08:16 | NUR ---
DR SAWYER AT BEDSIDE.
[2019-06-15 08:23] LABS: ALANINE AMINOTRANSFERASE 130 U/L (12-78); ALBUMIN 2.8 g/dL (3.4-5.0); ANION GAP 4 mmol/L (5-15); CHLORIDE 110 mmol/L (98-107)
[2019-06-15 08:28] LABS: ALKALINE PHOSPHATASE 99 U/L (45-117); BILIRUBIN,TOTAL 0.2 mg/dL (0.2-1.0); CREATININE 0.61 mg/dL (0.55-1.02); TOTAL PROTEIN 6.5 g/dL (6.4-8.2)
--- NOTE | 2019-06-15 09:00 | NUR ---
ALL TESTS RESULTED AND PT AWARE CHART IS UP FOR MD REVIEW.
[2019-06-15 09:41] VITALS: BP 121/65
--- NOTE | 2019-06-15 09:42 | NUR ---
DISCHARGE INST REVIEWED WITH PATIENT. PT REFUSES TO SIGN D/C INST. THREW HER COPY OF THE INSTRUCTIONS AND RX FOR ZOFRAN ON THE GURNEY.
== END 2019-06-15 09:43 | disposition home or self-care (01) ==
LOC: ED 07:37
DX: O26.891 Other specified pregnancy related conditions, first trimester (principal); R10.31 Right lower quadrant pain; Z3A.01 Less than 8 weeks gestation of pregnancy
CPT/HCPCS: 36415; 76830; 80053; 83690; 84702; 85025; 99284

== ENCOUNTER 2019-06-21 00:54 | Emergency (ER) | payer MEDICAID, OTHER ==
[~2019-06-21] VITALS: Ht 172.7 cm; Wt 78.0 kg
[2019-06-21 00:59] VITALS: BP 108/87
--- NOTE | 2019-06-21 01:04 | NUR ---
PT REQUESTING PAIN AND MOR NAUSEA MEDS. PA STATES NO MORE PAIN MEDS PT JUST RECEIVED 100MCG FENT. WE WILL HOWEVER ORDER ZOFRAN.
--- NOTE | 2019-06-21 01:10 | NUR ---
PT TO ULTRASOUND
[2019-06-21 01:15] LABS: BASOPHILS # (AUTO) 0.07 x10^3/uL (0-0.1); BASOPHILS % (AUTO) 1 % (0-1); EOSINOPHILS # (AUTO) 0.15 x10^3/uL (0-0.4); EOSINOPHILS % (AUTO) 1 % (1-7); LYMPHOCYTES # (AUTO) 2.65 x10^3/uL (1-3.4); LYMPHOCYTES % (AUTO) 25 % (22-44); MD NO; MEAN CORPUSCULAR HEMOGLOBIN 29.6 pg (27.0-34.8); MEAN CORPUSCULAR HGB CONC 32.8 g/dL (32.4-35.8); MEAN CORPUSCULAR VOLUME 90.2 fL (80-100); MEAN PLATELET VOLUME 6.6 fL (7.4-10.4); MONOCYTES # (AUTO) 0.62 x10^3/uL (0.2-0.8); MONOCYTES % (AUTO) 6 % (2-9); NEUTROPHILS # (AUTO) 7.09 x10^3/uL (1.8-6.8); NEUTROPHILS % (AUTO) 67 % (42-75); PLATELET COUNT 412 x10^3/uL (130-400); RED BLOOD COUNT 3.88 x10^6/uL (3.82-5.3); RED CELL DISTRIBUTION WIDTH 14.5 % (9.6-15.2)
[2019-06-21 01:23] LABS: ALANINE AMINOTRANSFERASE 60 U/L (12-78); ANION GAP 9 mmol/L (5-15); CALCIUM 8.9 mg/dL (8.5-10.1); CHLORIDE 103 mmol/L (98-107); CREATININE 0.72 mg/dL (0.55-1.02)
[2019-06-21] MEDS ORDERED: ONDANSETRON 2MG/ML, 2ML ONE (01:24)
[2019-06-21] MEDS ORDERED: ONDANSETRON 2MG/ML, 2ML IVPush ONE (01:30)
[2019-06-21] MEDS ORDERED: POTASSIUM CHLORIDE 20 MEQ in SODIUM CHLORIDE 0.9% 250 ML IV ONE (01:30)
[2019-06-21] MEDS ORDERED: POTASSIUM CHLORIDE 20 MEQ TAB.ER.PRT PO ONE ×2 (01:30→02:30)
[2019-06-21 01:40] LABS: ALKALINE PHOSPHATASE 96 U/L (45-117); BILIRUBIN,TOTAL 0.3 mg/dL (0.2-1.0); TOTAL PROTEIN 7.1 g/dL (6.4-8.2)
[2019-06-21] MEDS ORDERED: POTASSIUM CHLORIDE 20 MEQ TAB.ER.PRT ONE (01:44)
--- NOTE | 2019-06-21 01:48 | NUR ---
PT MEDICATED WITH PO K+. UNABLE TO START IV K+ AT THIS TIME DUE TO ZERO IV PUMPS IN THE ER. STER[facility] PROCESSING WAS CALLED WHOM STATES "WE CAN'T DO A PUMP RUN UNTIL 3AM"
--- NOTE | 2019-06-21 01:50 | NUR ---
PT REQUESTING PAIN MEDICATION. PA INFORMED. NO PAIN MEDS TO BE GIVEN AT THIS TIME PT IS BELIEVED TO BE NARCOTIC SEEKING. PA RAN RAYMOND MILL OPERATOR AND PT HAS HAD MULTIPLE NARCOTIC SCRIPTS BY MULTIPLE DIFFERENT DOCTORS IN RECENT MONTHS.
--- NOTE | 2019-06-21 01:56 | NUR ---
PT DYNAMOMETER REPAIRER LIGHT REQUESTING PAIN MEDICINE FOR HER "PAIN IN MY BELLY AREA". PA INFORMED.
--- NOTE | 2019-06-21 02:02 | NUR ---
PT AGAIN LABOR RELATIONS SPECIALIST LIGHT REQUESTING PAIN MEDS.
--- NOTE | 2019-06-21 02:05 | NUR ---
PT CONSTANTLY CUSHION COVER INSPECTOR LIGHT SOON IT IS ANSWERED. PT HAS BEEN INFORMED MULTIPLE TIMES THE PROVIDER HAS NOT ORDERED PAIN MEDS. PT NOT RECEPTIVE TO APPROPRIATE CALL LIGHT USEAGE.
== END 2019-06-21 03:15 | disposition home or self-care (01) ==
LOC: ED 01:49
DX: O26.891 Other specified pregnancy related conditions, first trimester (principal); R10.2 Pelvic and perineal pain; O02.9 Abnormal product of conception, unspecified; E87.6 Hypokalemia; Z3A.01 Less than 8 weeks gestation of pregnancy
CPT/HCPCS: 36415; 76801; 80053; 84702; 85025; 96374; 99284; J2405

== ENCOUNTER 2019-06-23 22:28 | Emergency (ER) | payer MEDICAID ==
[~2019-06-23] VITALS: Ht 165.1 cm; Wt 70.0 kg
[2019-06-23 22:37] VITALS: BP 107/59
--- NOTE | 2019-06-23 23:02 | NUR ---
PT C/O SEVERE LOWER ABD PAIN. +PG ~7WEEKS. GIVEN 100MCG FENTANYL IV BY EMS, TOOK ZOFRAN GREEK PROFESSOR. PT DENIES ANY RELIEF. IN POSITION, REFUSING U/S. AT TO DISCUSS PLAN S U/S RESULTS. "IM NOT HAVING THEM PUSH ON MY STOMACH". PT & NO MORE NARCS TO BE GIVEN AT THIS POINT.
--- NOTE | 2019-06-23 23:04 | NUR ---
PT DEMANDING TO SEE OB. PT INFORMED THAT OB WILL BE CONSULTED AT MD DISCRESSION & PENDING RESULTS. "I DONT WANT TO SEE THAT DOCTOR, I WANT OB". AGAIN TRIED TO EXPLAIN ER PLAN OF CARE. PT NOT RECEPTIVE.
--- NOTE | 2019-06-23 23:07 | NUR ---
PHLEB AT BS. PT REFUSING DRAW & REQUESTING IV REMOVAL. WILL INFORM MD OF PTS REQUESTS.
--- NOTE | 2019-06-23 23:12 | NUR ---
PT SEISMIC PROSPECTING OBSERVER LIGHT, DEMANDING IV BE REMOVED. IV REMOVED. "IM VOMITING AND YOURE NOT DOING ANYTHING"
--- NOTE | 2019-06-23 23:18 | NUR ---
PT "WHAT CAN I DO FOR VOMITING?." THIS RN RESPONDED C "TAKING THE ZOFRAN EVERY 4-6HR SHOUD HELP, WHEN WAS THE LAST TIME YOU TOOK ANY?" PT BECOMING HOSTIL "I CAN READ THE LABEL BITCH". THIS RN LEFT THE ROOM & INFORMED MD OF PTS BEHAVIOR & DEMANDS.
--- NOTE | 2019-06-23 23:20 | NUR ---
PT AMBUALTORY OUT OF ED C C STEADY GAIT. AWARE.
== END 2019-06-23 23:22 | disposition left against medical advice (07) ==
LOC: ED 23:03
DX: O20.9 Hemorrhage in early pregnancy, unspecified (principal); O21.9 Vomiting of pregnancy, unspecified; O26.891 Other specified pregnancy related conditions, first trimester; R10.9 Unspecified abdominal pain; Z3A.00 Weeks of gestation of pregnancy not specified; Z90.49 Acquired absence of other specified parts of digestive tract; Z72.9 Problem related to lifestyle, unspecified; Z87.11 Personal history of peptic ulcer disease
CPT/HCPCS: 99283

== ENCOUNTER 2019-06-27 03:32 | Emergency (ER) | payer MEDICAID ==
[~2019-06-27] VITALS: Ht 162.6 cm; Wt 70.0 kg
[2019-06-27 04:19] VITALS: BP 117/70
--- NOTE | 2019-06-27 04:29 | NUR ---
PT AMBULATES TO BR WITH STEADY GAIT
--- NOTE | 2019-06-27 04:55 | NUR ---
29Y F COMES IN WITH C/O R LOWER QUAD ABD PAIN WITH N/V. PT STS SHE PAIN AND NASUSEA CAME ON ALL OF A SUDDEN WHILE AT WORK. PT STS SHE IS TAKING ABX FOR AN INFECTION AT THIS TIME AND IS 6WKS . PT DENIES RECENT TRAUMA. LAST MEAL WAS 0000. PT CONNECTED TO MONITORING VSS.
--- NOTE | 2019-06-27 04:57 | NUR ---
MD AT BEDSIDE TO ASSESS PT
[2019-06-27 05:53] LABS: BASOPHILS # (AUTO) 0.02 x10^3/uL (0-0.1); BASOPHILS % (AUTO) 0 % (0-1); EOSINOPHILS # (AUTO) 0.19 x10^3/uL (0-0.4); EOSINOPHILS % (AUTO) 2 % (1-7); LYMPHOCYTES # (AUTO) 1.85 x10^3/uL (1-3.4); LYMPHOCYTES % (AUTO) 22 % (22-44); MD NO; MEAN CORPUSCULAR HEMOGLOBIN 29.7 pg (27.0-34.8); MEAN CORPUSCULAR HGB CONC 32.6 g/dL (32.4-35.8); MEAN CORPUSCULAR VOLUME 91.1 fL (80-100); MEAN PLATELET VOLUME 6.9 fL (7.4-10.4); MONOCYTES # (AUTO) 0.48 x10^3/uL (0.2-0.8); MONOCYTES % (AUTO) 6 % (2-9); NEUTROPHILS # (AUTO) 5.78 x10^3/uL (1.8-6.8); NEUTROPHILS % (AUTO) 70 % (42-75); PLATELET COUNT 368 x10^3/uL (130-400); RED BLOOD COUNT 3.84 x10^6/uL (3.82-5.3); RED CELL DISTRIBUTION WIDTH 13.7 % (9.6-15.2)
[2019-06-27 05:57] LABS: ANION GAP 8 mmol/L (5-15); CHLORIDE 105 mmol/L (98-107); CREATININE 0.75 mg/dL (0.55-1.02)
[2019-06-27] MEDS ORDERED: ONDANSETRON 2MG/ML, 2ML ONE (05:57)
[2019-06-27] MEDS ORDERED: ONDANSETRON 2MG/ML, 2ML IVPush ONE (06:00)
--- NOTE | 2019-06-27 06:10 | NUR ---
PT TO ULTRASOUND
--- NOTE | 2019-06-27 06:23 | NUR ---
PT BACK FROM US AT THIS TIME
[2019-06-27] MEDS ORDERED: DIPHENHYDRAMINE 50 MG/ML, 1ML ONE ×2 (06:46)
[2019-06-27] MEDS ORDERED: METOCLOPRAMIDE 5 MG/ML, 2ML ONE (06:46)
--- NOTE | 2019-06-27 06:57 | NUR ---
REPORT FROM MARCELINO MAYA TO ASSUME CARE AT THIS TIME.
--- NOTE | 2019-06-27 06:57 | NUR ---
PT OFFERED MEDICATION FOR NAUSEA, PT REFUSING BENADRYL AT THIS TIME.
[2019-06-27] MEDS ORDERED: DIPHENHYDRAMINE 50 MG/ML, 1ML IVPush ONE (07:00)
[2019-06-27] MEDS ORDERED: METOCLOPRAMIDE 5 MG/ML, 2ML IVPush ONE (07:00)
--- NOTE | 2019-06-27 07:05 | NUR ---
PT RESTING IN ROOM WITH LIGHTS DIMMED AND FAMILY AT BS. PT REFUSING MONITORING EQUIPMENT AT THIS TIME. PT AGITATED THAT RESULTS ARENT'T BACK YET. PT EDUCATED THAT MD WILL UPDATE PT ON POC AND RESULTS ONCE RESULTS ARE BACK IN.
== END 2019-06-27 07:22 | disposition home or self-care (01) ==
LOC: ED 03:46
DX: O20.0 Threatened abortion (principal); R10.31 Right lower quadrant pain; O21.9 Vomiting of pregnancy, unspecified
CPT/HCPCS: 36415; 76801; 80048; 84702; 85025; 96374; 96375; 99284; J2405; J2765

== ENCOUNTER 2019-08-10 21:19 | Emergency (ER) | payer MEDICAID ==
[~2019-08-10] VITALS: Ht 172.7 cm; Wt 77.8 kg
[2019-08-10 21:25] VITALS: BP 103/57
--- NOTE | 2019-08-10 21:30 | NUR ---
LIVESTOCK NUTRITIONIST: PT TO LOBBY AFTER TRIAGE. LIVE IUP CONFIRMED AT LAST VISIT TO ED, 06/27 VIA US.
--- NOTE | 2019-08-10 22:04 | NUR ---
EARLY YEARS TEACHER: PT AMBULATED STEADILY TO ROOM. L&D CONTACTED FOR HEART TONES Addendum: 08/10/19 at 2205 by AGNIESZKA L&D RN STATES "WE DON'T GENERALLY ASSESS EARLY 13 WEEKS" & WILL NOT BE ASSESSING PT AT THIS TIME
[2019-08-10 22:15] LABS: CULTURE INDICATED? YES; HCG UR SG 1.017 (1.003-1.030); MICROSCOPIC AUTO
[2019-08-10] MEDS ORDERED: ONDANSETRON ODT 4 MG PO ONE (22:30)
[2019-08-10 22:38] LABS: BASOPHILS # (AUTO) 0.02 x10^3/uL (0-0.1); BASOPHILS % (AUTO) 0 % (0-1); EOSINOPHILS # (AUTO) 0.24 x10^3/uL (0-0.4); EOSINOPHILS % (AUTO) 3 % (1-7); LYMPHOCYTES # (AUTO) 1.78 x10^3/uL (1-3.4); LYMPHOCYTES % (AUTO) 24 % (22-44); MD NO; MEAN CORPUSCULAR HEMOGLOBIN 29.3 pg (27.0-34.8); MEAN CORPUSCULAR HGB CONC 33.3 g/dL (32.4-35.8); MONOCYTES # (AUTO) 0.42 x10^3/uL (0.2-0.8); MONOCYTES % (AUTO) 6 % (2-9); NEUTROPHILS # (AUTO) 4.89 x10^3/uL (1.8-6.8); NEUTROPHILS % (AUTO) 67 % (42-75); PLATELET COUNT 282 x10^3/uL (130-400); RED BLOOD COUNT 3.65 x10^6/uL (3.82-5.3); RED CELL DISTRIBUTION WIDTH 14.3 % (9.6-15.2)
[2019-08-10 22:51] LABS: ALANINE AMINOTRANSFERASE 13 U/L (12-78); ALBUMIN 2.2 g/dL (3.4-5.0); ANION GAP 7 mmol/L (5-15); CALCIUM 8.1 mg/dL (8.5-10.1); CHLORIDE 108 mmol/L (98-107); CREATININE 0.46 mg/dL (0.55-1.02)
[2019-08-10 23:09] LABS: ALKALINE PHOSPHATASE 37 U/L (45-117); BILIRUBIN,TOTAL 0.1 mg/dL (0.2-1.0); TOTAL PROTEIN 5.7 g/dL (6.4-8.2)
[2019-08-10] MEDS ORDERED: ONDANSETRON ODT 4 MG ONE (23:09)
[2019-08-10] MEDS ORDERED: ACETAMINOPHEN 325 MG TABLET PO ONE (23:30)
--- NOTE | 2019-08-10 23:35 | NUR ---
pt left before recieving discharge paperwork
== END 2019-08-10 23:37 | disposition home or self-care (01) ==
LOC: ED 22:34
DX: O26.891 Other specified pregnancy related conditions, first trimester (principal); O23.41 Unspecified infection of urinary tract in pregnancy, first trimester; R10.31 Right lower quadrant pain; R10.32 Left lower quadrant pain; Z3A.10 10 weeks gestation of pregnancy; Z90.49 Acquired absence of other specified parts of digestive tract
CPT/HCPCS: 36415; 76801; 80053; 81001; 81025; 84702; 85025; 87086; 99284; Q0162

== ENCOUNTER 2019-09-14 06:23 | Emergency (ER) | payer MEDICAID ==
[~2019-09-14] VITALS: Ht 172.7 cm; Wt 78.9 kg
--- NOTE | 2019-09-14 06:45 | NUR ---
PT TO ED WITH ABOMINAL PAIN, N/V X1 DAY. PT TENDER IN ALL QUADRANTS, REPORTS 10/10 PAIN. PT DENIES DIARHEA, REPORTS BEING 18 WEEKS , DENIES ABDOMINAL CRAMPING, VB. PT CONNECTED TO MONITORING, CALL LIGHT WITHIN REACH, ALL SAFETY MEASURES IN PLACE, FAMILY AT BS FOR SUPPORT.
[2019-09-14] MEDS ORDERED: ONDANSETRON 2MG/ML, 2ML ONE (06:48)
[2019-09-14 06:50] LABS: MICROSCOPIC NOT IND
--- NOTE | 2019-09-14 06:51 | NUR ---
REPORT TO MARCELINO MINAYA.
[2019-09-14 06:53] LABS: CULTURE INDICATED? NO
[2019-09-14] MEDS ORDERED: FAMOTIDINE 20 MG/2 ML IVPush ONE (07:00)
[2019-09-14] MEDS ORDERED: SODIUM CHLORIDE 0.9% 1,000ML IVBOLUS ONE (07:00)
[2019-09-14] MEDS ORDERED: SODIUM CHLORIDE FLUSH 10ML SYR IVF ONE (07:00)
[2019-09-14] MEDS ORDERED: ONDANSETRON 2MG/ML, 2ML IVPush ONE (07:00)
--- NOTE | 2019-09-14 07:01 | NUR ---
PIV STARTED. PT MEDICATED PER EMAR.
[2019-09-14] MEDS ORDERED: FAMOTIDINE 20 MG/2 ML ONE (07:02)
[2019-09-14] MEDS ORDERED: MORPHINE SULFATE 4 MG/ML, 1ML ONE (07:07)
--- NOTE | 2019-09-14 07:15 | NUR ---
PT AMBULATED TO THE BR W/ A STEADY GAIT.
[2019-09-14 07:21] LABS: BASOPHILS # (AUTO) 0.03 x10^3/uL (0-0.1); BASOPHILS % (AUTO) 0 % (0-1); EOSINOPHILS # (AUTO) 0.49 x10^3/uL (0-0.4); EOSINOPHILS % (AUTO) 5 % (1-7); LYMPHOCYTES # (AUTO) 2.59 x10^3/uL (1-3.4); LYMPHOCYTES % (AUTO) 28 % (22-44); MD NO; MEAN CORPUSCULAR HEMOGLOBIN 28.9 pg (27.0-34.8); MEAN CORPUSCULAR HGB CONC 32.9 g/dL (32.4-35.8); MEAN CORPUSCULAR VOLUME 87.7 fL (80-100); MEAN PLATELET VOLUME 7.3 fL (7.4-10.4); MONOCYTES # (AUTO) 0.56 x10^3/uL (0.2-0.8); MONOCYTES % (AUTO) 6 % (2-9); NEUTROPHILS # (AUTO) 5.58 x10^3/uL (1.8-6.8); NEUTROPHILS % (AUTO) 60 % (42-75); PLATELET COUNT 317 x10^3/uL (130-400); RED BLOOD COUNT 3.87 x10^6/uL (3.82-5.3); RED CELL DISTRIBUTION WIDTH 14.8 % (9.6-15.2)
[2019-09-14 07:26] LABS: ALANINE AMINOTRANSFERASE 17 U/L (12-78); ALBUMIN 2.8 g/dL (3.4-5.0); ANION GAP 7 mmol/L (5-15); CALCIUM 9.6 mg/dL (8.5-10.1); CHLORIDE 102 mmol/L (98-107)
[2019-09-14 07:29] LABS: ALKALINE PHOSPHATASE 49 U/L (45-117); BILIRUBIN,TOTAL 0.2 mg/dL (0.2-1.0); CREATININE 0.58 mg/dL (0.55-1.02); TOTAL PROTEIN 7.3 g/dL (6.4-8.2)
[2019-09-14] MEDS ORDERED: morphine SULFATE 10 MG/ML, 1ML IVPush ONE (07:30)
--- NOTE | 2019-09-14 08:10 | NUR ---
PT PROVIDED WATER FOR PO FLUID CHALLENGE.
--- NOTE | 2019-09-14 08:51 | NUR ---
PRECEPTOR RN: PT SITTING UP ON [place], USING PHONE. PT WITH RIGHT ARM BENT. SMALL AMT OF NS INFUSED. DISCUSSED WITH PT, KEEPING ARM STRAIGHT SO FLUIDS WILL INFUSE. PT VERBALIZED UNDERSTANDING. PT ABLE TO KEEP PO FLUIDS DOWN AT THIS TIME. PT AWARE OF TO BE DC'D AFTER NS INFUSED. FAMILY AT BEDSIDE.
[2019-09-14 08:53] VITALS: BP 100/55
--- NOTE | 2019-09-14 09:24 | NUR ---
PRECEPTOR RN: PT CONT TO BEND ARM, CONT TO EDUCATE PT ON KEEPING ARM STRAIGHT. PT VERBALIZES UNDERSTANDING. PT CONT TO USE PHONE. FAMILY AT BEDSIDE.
--- NOTE | 2019-09-14 09:39 | NUR ---
AFTER TALKING TO COOKIE BOYKIN, PT OK TO DC AFTER RECEIVING 500MLS.
--- NOTE | 2019-09-14 09:45 | NUR ---
Patient given discharge instructions and they have confirmed that they understand the instructions. Patient ambulatory with steady gait.
== END 2019-09-14 09:51 | disposition home or self-care (01) ==
LOC: ED 08:09
DX: O21.8 Other vomiting complicating pregnancy (principal); O26.892 Other specified pregnancy related conditions, second trimester; R10.84 Generalized abdominal pain; Z3A.18 18 weeks gestation of pregnancy; Z90.49 Acquired absence of other specified parts of digestive tract; Z88.0 Allergy status to penicillin
CPT/HCPCS: 36415; 80053; 81003; 83690; 85025; 96361; 96374; 96375; 99284; J2270; J2405; J3490; J7030

== ENCOUNTER 2020-01-09 02:17 | Outpatient (CLI) | payer MEDICAID ==
[~2020-01-09] VITALS: Ht 172.7 cm; Wt 77.2 kg
[2020-01-09] MEDS ORDERED: LACTATED RINGERS 1,000 ML IV SCH (02:40)
[2020-01-09 02:44] LABS: MICROSCOPIC INDICATED
[2020-01-09] MEDS ORDERED: TERBUTALINE 1 MG/ML, 1ML ONE (02:49)
[2020-01-09 02:53] LABS: AMPHETAMINE SCREEN, URINE Negative (Negative); BARBITURATE SCREEN, URINE Negative (Negative); BENZODIAZEPINE SCREEN, URINE Negative (Negative); CANNABINOID SCREEN, URINE Negative (Negative); COCAINE SCREEN, URINE Negative (Negative); METHADONE SCREEN, URINE Negative (Negative); OPIATE SCREEN, URINE Negative (Negative)
[2020-01-09] MEDS ORDERED: TERBUTALINE 1 MG/ML, 1ML SQ PRN (03:00)
[2020-01-09] MEDS ORDERED: D5%-LACTATED RINGERS 1,000 ML IV SCH (03:08)
[2020-01-09] MEDS ORDERED: ACETAMINOPHEN 325 MG TABLET ONE (03:46)
[2020-01-09] MEDS ORDERED: ACETAMINOPHEN 325 MG TABLET PO PRN (04:00)
[2020-01-09] MEDS ORDERED: PLEASE ENTER HEIGHT AND WEIGHT MC SCH (04:00)
== END 2020-01-09 14:26 | disposition home or self-care (01) ==
LOC: LDOP 02:17 → LDIP 03:04 → UNDOADMOB 03:04 → UNDODISOB 03:55 → LDOP 14:26
PROVIDERS: ATTEND Obstetrics & Gynecology
DX: O26.892 Other specified pregnancy related conditions, second trimester (principal); Z3A.18 18 weeks gestation of pregnancy; Z90.49 Acquired absence of other specified parts of digestive tract
CPT/HCPCS: 59025; 80307; 81001; 96360; 96372; J3105; G0378

== ENCOUNTER 2020-04-17 13:41 | Emergency (ER) | payer MEDICAID ==
[~2020-04-17] VITALS: Ht 172.7 cm; Wt 77.5 kg
[2020-04-17] MEDS ORDERED: SODIUM CHLORIDE 0.9% 1,000ML IVBOLUS ONE (14:00)
[2020-04-17] MEDS ORDERED: MORPHINE SULFATE 4 MG/ML, 1ML ONE ×2 (14:02→14:27)
[2020-04-17] MEDS: MORPHINE SULFATE 4 MG/ML, 1ML IVPush PRN ×2 (14:04→14:29)
[2020-04-17] MEDS ORDERED: METOCLOPRAMIDE 5 MG/ML, 2ML ONE (14:21)
[2020-04-17] MEDS ORDERED: METOCLOPRAMIDE 5 MG/ML, 2ML IVPush ONE (14:30)
[2020-04-17 14:47] LABS: BASOPHILS # (AUTO) 0.02 x10^3/uL (0-0.1); BASOPHILS % (AUTO) 0 % (0-1); EOSINOPHILS # (AUTO) 0.28 x10^3/uL (0-0.4); EOSINOPHILS % (AUTO) 3 % (1-7); LYMPHOCYTES % (AUTO) 20 % (22-44); MD NO; MEAN CORPUSCULAR HEMOGLOBIN 29.4 pg (27.0-34.8); MEAN CORPUSCULAR HGB CONC 32.5 g/dL (32.4-35.8); MEAN PLATELET VOLUME 6.8 fL (7.4-10.4); MONOCYTES # (AUTO) 0.44 x10^3/uL (0.2-0.8); MONOCYTES % (AUTO) 5 % (2-9); NEUTROPHILS # (AUTO) 6.22 x10^3/uL (1.8-6.8); NEUTROPHILS % (AUTO) 72 % (42-75); PLATELET COUNT 289 x10^3/uL (130-400); RED BLOOD COUNT 4.17 x10^6/uL (3.82-5.3); RED CELL DISTRIBUTION WIDTH 14.3 % (9.6-15.2)
[2020-04-17 14:55] LABS: ALANINE AMINOTRANSFERASE 130 U/L (12-78); ALBUMIN 3.1 g/dL (3.4-5.0); ANION GAP 5 mmol/L (5-15); CALCIUM 8.4 mg/dL (8.5-10.1); CHLORIDE 110 mmol/L (98-107); CREATININE 0.82 mg/dL (0.55-1.02)
[2020-04-17 14:57] LABS: ALKALINE PHOSPHATASE 134 U/L (45-117); BILIRUBIN,TOTAL 0.6 mg/dL (0.2-1.0); TOTAL PROTEIN 6.6 g/dL (6.4-8.2)
[2020-04-17] MEDS ORDERED: LORazepam 2 MG/ML, 1ML IVPush ONE (15:00)
[2020-04-17] MEDS ORDERED: LORazepam 2 MG/ML, 1ML ONE (15:02)
[2020-04-17] MEDS ORDERED: OMNIPAQUE 350 MG/ML, 100ML BOTTLE ONE (15:32)
[2020-04-17 16:06] VITALS: BP 108/70
== END 2020-04-17 16:16 | disposition home or self-care (01) ==
LOC: ED 15:42
DX: S20.212A Contusion of left front wall of thorax, initial encounter (principal); S40.012A Contusion of left shoulder, initial encounter; R10.12 Left upper quadrant pain; R11.2 Nausea with vomiting, unspecified; R51.9 Headache, unspecified; F17.210 Nicotine dependence, cigarettes, uncomplicated; Z90.49 Acquired absence of other specified parts of digestive tract; W18.39XA Other fall on same level, initial encounter; Y93.39 Activity, other involving climbing, rappelling and jumping off; Y92.830 Public park as the place of occurrence of the external cause; Y99.8 Other external cause status
CPT/HCPCS: 36415; 71260; 73030; 74177; 80053; 84703; 85025; 96361; 96374; 96375; 99285; J2060; J2270; J2765; J7030; Q9967

== ENCOUNTER 2020-04-19 21:09 | Emergency (ER) | payer MEDICAID ==
[~2020-04-19] VITALS: Ht 172.7 cm; Wt 79.0 kg
[2020-04-19 21:12] VITALS: BP 125/86
--- NOTE | 2020-04-19 21:19 | NUR ---
PATIENT IS REFUSING TO TAKE OFF SHIRT TO BE PLACED INTO HOSPITAL GOWN, PATIENT IS REFUSING TO BE ON MONITOR. PATIENT STATED THAT SHE WANTS TO LEAVE WITHOUT BEING SEEN. PATIENT IS REFUSING TO BE SEEN BY PHYSICIAN OR WAIT FOR EVALUATION. PATIENT AMBULATORY WITHOUT COMPLICATIONS. PATIENT'S IV, PLACED BY EMS, DISCONTINUED.
== END 2020-04-19 21:37 | disposition left against medical advice (07) ==
LOC: ED 21:15
DX: R07.81 Pleurodynia (principal); Z53.21 Procedure and treatment not carried out due to patient leaving prior to being seen by health care provider

== ENCOUNTER 2020-05-23 20:28 | Emergency (ER) | payer MEDICAID ==
[~2020-05-23] VITALS: Ht 172.7 cm; Wt 75.0 kg
[2020-05-23] MEDS ORDERED: ONDANSETRON ODT 4 MG ONE (20:39)
--- NOTE | 2020-05-23 20:41 | NUR ---
PT VOMITING IN TRIAGE AREA, PT MEDICATED WITH ZOFRAN 4MG ODT
[2020-05-23] MEDS ORDERED: ONDANSETRON ODT 4 MG PO ONE (21:00)
[2020-05-23 21:27] LABS: BASOPHILS % (AUTO) 0 % (0-1); EOSINOPHILS % (AUTO) 1 % (1-7); LYMPHOCYTES % (AUTO) 53 % (22-44); MEAN CORPUSCULAR HEMOGLOBIN 30.3 pg (27.0-34.8); MEAN CORPUSCULAR HGB CONC 34.5 g/dL (32.4-35.8); MEAN PLATELET VOLUME 6.7 fL (7.4-10.4); MONOCYTES % (AUTO) 5 % (2-9); NEUTROPHILS % (AUTO) 40 % (42-75); PLATELET COUNT 319 x10^3/uL (130-400); RED BLOOD COUNT 4.65 x10^6/uL (3.82-5.3); RED CELL DISTRIBUTION WIDTH 13.5 % (9.6-15.2)
[2020-05-23 21:30] LABS: MD NO
[2020-05-23] MEDS ORDERED: ONDANSETRON 2MG/ML, 2ML IVPush ONE (21:30)
[2020-05-23] MEDS ORDERED: SODIUM CHLORIDE 0.9% 1,000ML IVBOLUS ONE (21:30)
[2020-05-23 21:31] LABS: ALANINE AMINOTRANSFERASE 35 U/L (12-78); ALBUMIN 3.3 g/dL (3.4-5.0); ANION GAP 7 mmol/L (5-15); CALCIUM 8.6 mg/dL (8.5-10.1); CHLORIDE 107 mmol/L (98-107); CREATININE 0.81 mg/dL (0.55-1.02)
[2020-05-23] MEDS ORDERED: ONDANSETRON 2MG/ML, 2ML ONE (21:31)
[2020-05-23] MEDS ORDERED: MORPHINE SULFATE 4 MG/ML, 1ML ONE ×2 (21:32→22:17)
[2020-05-23 21:36] LABS: ALKALINE PHOSPHATASE 67 U/L (45-117); BILIRUBIN,TOTAL 0.4 mg/dL (0.2-1.0); TOTAL PROTEIN 7.5 g/dL (6.4-8.2)
[2020-05-23] MEDS: MORPHINE SULFATE 4 MG/ML, 1ML IVPush PRN ×2 (21:38→22:20)
[2020-05-23 21:51] LABS: MICROSCOPIC INDICATED
[2020-05-23] MEDS ORDERED: METOCLOPRAMIDE 5 MG/ML, 2ML ONE (22:16)
[2020-05-23 22:22] VITALS: BP 121/66
[2020-05-23] MEDS ORDERED: METOCLOPRAMIDE 5 MG/ML, 2ML IVPush ONE (22:30)
== END 2020-05-23 22:38 | disposition home or self-care (01) ==
LOC: ED 21:35
DX: R10.11 Right upper quadrant pain (principal); R11.2 Nausea with vomiting, unspecified; Z87.11 Personal history of peptic ulcer disease; Z90.89 Acquired absence of other organs; Z90.49 Acquired absence of other specified parts of digestive tract
CPT/HCPCS: 36415; 80053; 81001; 83690; 84703; 85025; 87086; 96361; 96374; 96375; 96376; 99284; J2270; J2405; J2765; J7030; Q0162; 99285

== ENCOUNTER 2020-09-16 02:32 | Emergency (ER) | payer MEDICAID ==
[~2020-09-16] VITALS: Ht 172.7 cm; Wt 75.0 kg
[2020-09-16] MEDS: PLEASE ENTER HEIGHT AND WEIGHT MC SCH ×2 (02:46→03:10)
[2020-09-16] MEDS ORDERED: ONDANSETRON 2MG/ML, 2ML ONE (02:51)
[2020-09-16] MEDS ORDERED: MORPHINE SULFATE 4 MG/ML, 1ML ONE ×2 (02:51→03:37)
[2020-09-16] MEDS ORDERED: MORPHINE SULFATE 4 MG/ML, 1ML IVPush ONE (03:00)
[2020-09-16] MEDS ORDERED: ONDANSETRON 2MG/ML, 2ML IVPush ONE (03:00)
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
--- NOTE | 2020-09-16 03:24 | NUR ---
PATIENT RETURNED FROM XR
[2020-09-16] MEDS ORDERED: HYDROcodone/APAP 5/325 TABLET ONE (03:43)
--- NOTE | 2020-09-16 03:47 | NUR ---
PATIENT REQUESTING ADDITIONAL PAIN MEDICATION. I PULLED ANOTHER MORPHINE OUT OF [place] AND REALIZED ONLY ORDER FOR ONE DOSE. DAVIS BOYKIN NOTIFIED PATIENT IN PAIN AND REQUESTING PAIN MEDICATION. NORBLAYNE ORDERED AND ADMINISTERED TO PATIENT AFTER MORPHINE RETURNED TO [facility] WITH AFSANEH BENSON WITNESS
[2020-09-16] MEDS ORDERED: METOCLOPRAMIDE 5 MG/ML, 2ML ONE (03:52)
[2020-09-16] MEDS ORDERED: KETOROLAC 30 MG/1 ML ONE (03:52)
[2020-09-16] MEDS ORDERED: HYDROcodone/APAP 5/325 TABLET PO ONE (04:00)
[2020-09-16] MEDS ORDERED: KETOROLAC 30 MG/1 ML IVPush ONE (04:00)
[2020-09-16] MEDS ORDERED: METOCLOPRAMIDE 5 MG/ML, 2ML IVPush ONE (04:00)
--- NOTE | 2020-09-16 04:31 | NUR ---
DISCHARGE INSTRUCTIONS REVIEWED WITH PATIENT. PATIENT ASKED FOR LIST OF MEDICATIONS SHE WAS GIVEN WHILE IN THE ER. I WROTE THESE ON DC INSTRUCTIONS FOR HER. PRESCRIPTION HANDED DIRECTLY TO PATIENT. I REVIEWED ROBAXIN WITH HER AND THAT SHE WAS NOT ALLOWED TO DRIVE OR OPERATE HEAVY MACHINERY OF DRINK ALCOHOL WHILE TAKING ROBAXIN. PATIENT VERBALLY ACKNOWLEDGE EDUCATION. LEFT ARM SLING IN PLACE ON DISCHARGE. PATIENT SLIGHTLY DROWSY DUE TO ALL MEDS GIVEN BUT STEADY GAIT WITH AMBULATION AND ORIENTED X4. PATIENT CALLING HER BOYFRIEND PER HER REPORT FOR A RIDE HOME OR WILL CALL A TAXI. ALL PERSONAL BELONGINGS WITH PATIENT ON DC. IV REMOVED PER DC PROTOCOL.
[2020-09-16 04:36] VITALS: BP 99/73
== END 2020-09-16 04:39 | disposition home or self-care (01) ==
LOC: ED 03:02
DX: G89.11 Acute pain due to trauma (principal); M25.552 Pain in left hip; M25.512 Pain in left shoulder; R07.9 Chest pain, unspecified; R07.81 Pleurodynia; F17.200 Nicotine dependence, unspecified, uncomplicated; Z90.49 Acquired absence of other specified parts of digestive tract; W10.8XXA Fall (on) (from) other stairs and steps, initial encounter; Y93.89 Activity, other specified; Y92.098 Other place in other non-institutional residence as the place of occurrence of the external cause; Y99.8 Other external cause status
CPT/HCPCS: 29125; 71101; 73030; 73502; 96374; 96375; 99284; J1885; J2270; J2405; J2765

== ENCOUNTER 2020-09-25 02:17 | Emergency (ER) | payer MEDICAID ==
[~2020-09-25] VITALS: Ht 170.2 cm; Wt 72.0 kg
[2020-09-25 02:25] VITALS: BP 117/60
[2020-09-25] MEDS ORDERED: KETOROLAC 30 MG/1 ML IM ONE (03:00)
[2020-09-25] MEDS ORDERED: KETOROLAC 60 MG/2 ML ONE (03:00)
[2020-09-25] MEDS ORDERED: ONDANSETRON ODT 4 MG ONE (03:00)
[2020-09-25] MEDS ORDERED: ONDANSETRON ODT 4 MG PO ONE (03:00)
--- NOTE | 2020-09-25 03:36 | NUR ---
Patient given discharge instructions and they have confirmed that they understand the instructions. Patient ambulatory with steady gait to d/c desk. "i dont want to stay anymore"
== END 2020-09-25 03:37 | disposition home or self-care (01) ==
LOC: ED 03:17
DX: G89.11 Acute pain due to trauma (principal); M25.512 Pain in left shoulder; M25.551 Pain in right hip; Z90.49 Acquired absence of other specified parts of digestive tract; V43.52XA Car driver injured in collision with other type car in traffic accident, initial encounter; Y93.89 Activity, other specified; Y92.488 Other paved roadways as the place of occurrence of the external cause; Y99.8 Other external cause status
CPT/HCPCS: 73030; 73502; 96372; 99284; J1885; Q0162

== ENCOUNTER 2020-11-20 21:59 | Emergency (ER) | payer MEDICAID ==
[~2020-11-20] VITALS: Ht 172.7 cm; Wt 70.0 kg
--- NOTE | 2020-11-20 22:20 | NUR ---
BIB EMS FROM [facility]. PT C/O LLQ PAIN. PT TRANSFERRED FOR US. CRUISE STAFF MEMBER RAMAH: PIV 20G LFA, 4MG MORPHINE, ROCEPHIN 1GM, ZITHRO 500MG, ZOFRAN 4MG. PT CONNECTED TO MONITORING. CALL LIGHT IN REACH. FRIEND AT BEDSIDE.
[2020-11-20] MEDS ORDERED: OXYcodone/APAP 5/325MG TABLET ONE ×2 (22:30→23:41)
[2020-11-20] MEDS ORDERED: OXYcodone/APAP 5/325MG TABLET PO ONE (22:30)
[2020-11-20] MEDS ORDERED: KETOROLAC 30 MG/1 ML ONE (22:42)
--- NOTE | 2020-11-20 22:46 | NUR ---
US PREVIOUSLY AT BEDSIDE, PT REFUSED TO GO UNTIL SHE RECEIVED PAIN MEDS. NOTIFIED, ORDER RECEIVED FOR PERCOCET . MED PULLED AND PT STATES SHE IS ALLERGIC TO EITHER OXYCODONE OR HYDROCONE, SHE DIDN'T REMEMBER. DESTINEE NOTIFIED, N/O FOR TORADOL. CERTIFIED PHLEBOTOMIST PER
--- NOTE | 2020-11-20 22:58 | NUR ---
REPORT RECIEVED FROM MARCELINO FIELD. PT STATES FEELING OK, RESTING IN [place], AWAITING US
[2020-11-20 22:59] VITALS: BP 118/68
[2020-11-20] MEDS ORDERED: KETOROLAC 30 MG/1 ML IVPush ONE (23:00)
[2020-11-20] MEDS ORDERED: ONDANSETRON ODT 4 MG ONE (23:41)
[2020-11-21] MEDS ORDERED: ONDANSETRON ODT 4 MG PO ONE
== END 2020-11-21 00:31 | disposition home or self-care (01) ==
LOC: ED 11-21 00:26
DX: R10.32 Left lower quadrant pain (principal); R11.2 Nausea with vomiting, unspecified; Z90.49 Acquired absence of other specified parts of digestive tract; Z88.0 Allergy status to penicillin
CPT/HCPCS: 76830; 96374; 99284; J1885; Q0162

== ENCOUNTER 2020-12-17 01:31 | Emergency (ER) | payer MEDICAID ==
[~2020-12-17] VITALS: Ht 172.7 cm; Wt 77.2 kg
[2020-12-17] MEDS ORDERED: ONDANSETRON 2MG/ML, 2ML ONE (01:57)
[2020-12-17] MEDS ORDERED: ACETAMINOPHEN 500 MG TABLET ONE (01:57)
[2020-12-17] MEDS ORDERED: ONDANSETRON 2MG/ML, 2ML IVPush ONE (02:00)
[2020-12-17] MEDS ORDERED: ACETAMINOPHEN 500 MG TABLET PO ONE (02:00)
--- NOTE | 2020-12-17 02:05 | NUR ---
Pt medicated for nausea and given additonal emesis bags prior to this RN assessing other patients. Pt continually asking "why aren't you giving me anything stronger for pain?", this RN explained that it is important to controll active emesis so we can accurately assess pain, pt was unhappy with this explaination and requested to see the provider stating, "I want to see the doctor, NOT the PA, she won't give me the right stuff". Pt made aware that the doctor was making rounds and would be in momentarily to see her. As soon as this RN left the room to assess other pts this pt continually hit her call light to ask where the doctor is and "why wont you give me somethign stronger?". Pt made aware that this RN was on her way to ask the provider to ask for a different nausea med since zofran had no effect. Pt unable to comprehend that this RN is actively trying to provide care for the pt to the best of this RN's ability. CHRISTOPHE.
[2020-12-17] MEDS ORDERED: KETOROLAC 30 MG/1 ML ONE (02:07)
--- NOTE | 2020-12-17 02:07 | NUR ---
Pt again pressing call light to ask RN where the doctor is
--- NOTE | 2020-12-17 02:09 | NUR ---
Pt continually pressing call light when RN out of room to ask for "stronger" pain meds
[2020-12-17 02:10] LABS: BASOPHILS % (AUTO) 1 % (0-1); EOSINOPHILS % (AUTO) 2 % (1-7); LYMPHOCYTES % (AUTO) 45 % (22-44); MEAN CORPUSCULAR HEMOGLOBIN 30.6 pg (27.0-34.8); MEAN CORPUSCULAR HGB CONC 34.2 g/dL (32.4-35.8); MEAN PLATELET VOLUME 7.3 fL (7.4-10.4); MONOCYTES % (AUTO) 6 % (2-9); NEUTROPHILS % (AUTO) 47 % (42-75); PLATELET COUNT 285 x10^3/uL (130-400); RED BLOOD COUNT 3.88 x10^6/uL (3.82-5.3); RED CELL DISTRIBUTION WIDTH 13.5 % (9.6-15.2)
--- NOTE | 2020-12-17 02:11 | NUR ---
Pt pressing call light to ask for "anxiety meds instead of stronger pain medicine"
[2020-12-17 02:15] LABS: ALBUMIN 3.4 g/dL (3.4-5.0); ANION GAP 10 mmol/L (5-15); CALCIUM 8.4 mg/dL (8.5-10.1); CHLORIDE 101 mmol/L (98-107); CREATININE 0.94 mg/dL (0.55-1.02)
[2020-12-17 02:19] LABS: TROPONIN I < 0.015 ng/mL (0.000-0.045)
[2020-12-17] MEDS ORDERED: KETOROLAC 30 MG/1 ML IVPush ONE (02:30)
[2020-12-17] MEDS ORDERED: METOCLOPRAMIDE 5 MG/ML, 2ML ONE (02:48)
--- NOTE | 2020-12-17 02:55 | NUR ---
Pt requesting to leave AMA due to her not recieving the pain meds she requested, pt made aware of the importance of potassium and the risks of leaving. Provider notified and in room to talk to pt.
--- NOTE | 2020-12-17 03:09 | NUR ---
PRECEPTOR RN: PT REFUSING FURTHER MEDICAL INTERVENTION. PT WAS MEDICATED FOR NAUSEA AND PAIN AND AN EKG WAS COMPLETED IMMEDIATELY UPON HER ARRIVAL TO THE ER. PT OFFERED IV FLUIDS, IV POTASSIUM, AND ADDITIONAL IV ANTIEMETICS, HOW EVER PT REFUSING FURTHER MEDICAL INTERVENTION AT THIS TIME. DR HO TALKED TO PT AND SHE STATES SHE WANTS SOMETHING STRONGER FOR PAIN AND DOESN'T WANT IV POTASSIUM BECAUSE "IT DARBY IN MY VEINS" PT EDUCATED ON THE RISKS OF LEAVING AMA AND THE BENEFITS OF ADMISSION. PT STILL REFUSING TO STAY AND DEMANDING WE GIVE HER STRONGER PAIN MEDICATIONS. PT AMBULATORY TO THE DISCHARGE DESK WITH A STEADY GAIT. PT REFUSING TO SIGN AMA PAPERWORK AND STATING TO THIS RN "WHY ARE YOU SUCH A BITCH?!" SHE LEAVES.
--- NOTE | 2020-12-17 03:09 | NUR ---
PRECEPTOR RN: PT STATES SHE WANTS TO LEAVE AMA. PT STATES "YOU'RE NOT DOING ANYTHING FOR ME"
[2020-12-17] MEDS: METOCLOPRAMIDE 5 MG/ML, 2ML IVPush ONE ×2 (03:15→03:51)
[2020-12-17] MEDS: SODIUM CHLORIDE 0.9% 1,000ML IVBOLUS ONE ×2 (03:15→03:49)
[2020-12-17] MEDS: POTASSIUM CHLORIDE 40 MEQ in SODIUM CHLORIDE 0.9% 500 ML IV ONE ×2 (03:15→03:50)
--- NOTE | 2020-12-17 03:29 | NUR ---
Pt back in room in [facility], IV dc from break RN due to pt dressing herself and walking towards dc desk to leave AMA. Once pt back in room this RN placed a new IV, reconnected pt to all monitors, administerd all meds, took a new set of vitals, and ensured that the pt was comfortable, side rails up, and call light in place. Pt asked how long it will take for her to be admitted, this RN told her that it depends on the availbility of beds upstairs but that this RN will let her know as soon as she has called report. INNA, CHRISTOPHE
[2020-12-17] MEDS ORDERED: DIPHENHYDRAMINE 50 MG/ML, 1ML IVPush ONE (03:30)
[2020-12-17] MEDS ORDERED: MORPHINE SULFATE 4 MG/ML, 1ML IVPush ONE (03:30)
[2020-12-17] MEDS ORDERED: DIPHENHYDRAMINE 50 MG/ML, 1ML ONE (03:38)
[2020-12-17] MEDS ORDERED: MORPHINE SULFATE 4 MG/ML, 1ML ONE (03:39)
[2020-12-17] MEDS ORDERED: MELATONIN 5 MG TABLET PO PRN (04:30)
[2020-12-17] MEDS ORDERED: POTASSIUM CHLORIDE 20 MEQ in LACTATED RINGERS 1,000 ML IV SCH (04:30)
[2020-12-17] MEDS ORDERED: OXYcodone IR 5MG TABLET PO PRN (04:30)
[2020-12-17] MEDS ORDERED: POLYETHYLENE GLYCOL 17 GM PACKET PO PRN (04:30)
[2020-12-17] MEDS ORDERED: hydrALAzine 20 MG/ML, 1ML IVPush PRN (04:30)
[2020-12-17] MEDS ORDERED: DOCUSATE 100 MG CAPSULE PO PRN (04:30)
[2020-12-17] MEDS ORDERED: ACETAMINOPHEN 325 MG TABLET PO PRN (04:30)
[2020-12-17] MEDS ORDERED: LORazepam 2 MG/ML, 1ML IVPush PRN (04:30)
[2020-12-17] MEDS ORDERED: BISACODYL 10 MG SUPP PR PRN (04:30)
[2020-12-17] MEDS ORDERED: ONDANSETRON 2MG/ML, 2ML IVPush PRN (04:30)
[2020-12-17] MEDS ORDERED: TEMAZEPAM 15 MG CAPSULE PO PRN (04:30)
[2020-12-17] MEDS ORDERED: POTASSIUM CHLORIDE 20 MEQ TAB.ER.PRT PO ONE (05:30)
--- NOTE | 2020-12-17 05:57 | NUR ---
Pt ambulatory to restroom, when back in room and connected to potassium infusion pt states "how much longer until I get admitted? Because I have to be somewhere at 8am". Pt was educated on admission process to which pt responded "well I think I'm going to go cause I have to go get my car and stuff"
--- NOTE | 2020-12-17 06:01 | NUR ---
Attempted to call Dr Sarmiento to make aware of pt desire to AMA, no answer and no ability to leave voicemail.
--- NOTE | 2020-12-17 06:06 | NUR ---
Pt signed AMA form, paper copy in chart, see paper charting for more details. Pt educated on risk and benefits of leaving AMA vs being admitted as previously explained in POC by providers. IV dc w/tip intact, Pt able to dress self fully, A&O x4, ambulatory with steady gait to dc desk.
[2020-12-17] MEDS ORDERED: FLUOXETINE HCL 20 MG CAPSULE PO SCH (09:00)
[2020-12-17] MEDS ORDERED: FAMOTIDINE 20 MG TABLET PO SCH (09:00)
== END 2020-12-17 06:11 | disposition left against medical advice (07) ==
LOC: ED 02:01 → EDIP 03:34 → UNDOADMIN 03:34
DX: R07.89 Other chest pain (principal); R11.2 Nausea with vomiting, unspecified; E87.6 Hypokalemia; I48.91 Unspecified atrial fibrillation; Z90.89 Acquired absence of other organs; Z90.49 Acquired absence of other specified parts of digestive tract; Z87.11 Personal history of peptic ulcer disease
CPT/HCPCS: 36415; 71045; 74018; 80048; 82040; 83735; 84484; 84703; 85025; 93005; 96365; 96375; 99285; J1200; J1885; J2270; J2405; J2765; J3480; J7030; J7040

== ENCOUNTER 2020-12-24 00:59 | Emergency (ER) | payer MEDICAID ==
[~2020-12-24] VITALS: Ht 172.7 cm; Wt 72.0 kg
[2020-12-24 01:02] VITALS: BP 113/85
[2020-12-24] MEDS ORDERED: ONDANSETRON ODT 4 MG ONE (01:03)
--- NOTE | 2020-12-24 01:11 | NUR ---
[employer]ing [employer]: medicated patient with PO zofran
[2020-12-24] MEDS ORDERED: SODIUM CHLORIDE FLUSH 10ML SYR IVF ONE (01:30)
[2020-12-24] MEDS ORDERED: ONDANSETRON ODT 4 MG PO ONE (01:30)
[2020-12-24] MEDS ORDERED: SODIUM CHLORIDE 0.9% 1,000ML IVBOLUS ONE (01:30)
--- NOTE | 2020-12-24 02:18 | NUR ---
PATIENT CALLED A CAB AND LEFT.
== END 2020-12-24 02:23 | disposition left against medical advice (07) ==
LOC: ED 01:09
DX: S40.811A Abrasion of right upper arm, initial encounter (principal); M79.621 Pain in right upper arm; W18.30XA Fall on same level, unspecified, initial encounter; Y93.89 Activity, other specified; Y92.89 Other specified places as the place of occurrence of the external cause; Y99.8 Other external cause status
CPT/HCPCS: 99283; Q0162

== ENCOUNTER 2021-01-25 14:11 | Emergency (ER) | payer MEDICAID ==
[~2021-01-25] VITALS: Ht 172.7 cm; Wt 74.2 kg
[2021-01-25] MEDS ORDERED: KETOROLAC 30 MG/1 ML ONE (15:19)
[2021-01-25] MEDS ORDERED: ONDANSETRON ODT 4 MG ONE (15:20)
[2021-01-25] MEDS ORDERED: ONDANSETRON ODT 4 MG PO ONE (15:30)
[2021-01-25] MEDS ORDERED: KETOROLAC 30 MG/1 ML IM ONE (15:30)
--- NOTE | 2021-01-25 15:52 | NUR ---
PT REQ MORE NAUSEA AND PAIN MEDS. PT THINKS THEY MAY HAVE VOMITED THE NAUSEA MED UP. MESSAGE LEFT FOR PROVIDER.
[2021-01-25] MEDS ORDERED: PROMETHAZINE 25 MG/ML, 1ML ONE (16:30)
[2021-01-25] MEDS ORDERED: PROMETHAZINE 25 MG/ML, 1ML IM ONE (16:30)
[2021-01-25] MEDS ORDERED: HYDROcodone/APAP 5/325 TABLET ONE (17:29)
[2021-01-25] MEDS ORDERED: HYDROcodone/APAP 5/325 TABLET PO ONE (17:30)
[2021-01-25 17:33] VITALS: BP 103/65
--- NOTE | 2021-01-25 17:45 | NUR ---
PT REC'VD DISCHARGE INSTRUCTIONS AND EDUCATION. PT HAD NO FURTHER QUESTIONS. PT AMBULATED TO DC AREA WITH SIGNIFICANT OTHER. CRUTCHES LEFT IN ROOM.
--- NOTE | 2021-01-25 18:20 | NUR ---
AFTER DISCHARGE PT ASKED FOR MEDICAL RECORDS. PT DIREDCTED TO MEDICAL RECORD OR TO THE ONLINE PORTAL TO OBTAIN MEDICAL RECORDS. PT WAS SHORTLY DIRECTED TO THE RELIEF NURSE TO DISCUSS ISSUE.
== END 2021-01-25 17:57 | disposition home or self-care (01) ==
LOC: ED 15:48
DX: M79.671 Pain in right foot (principal); R11.0 Nausea
CPT/HCPCS: 73630; 96372; 99284; J1885; J2550; Q0162